=== PATIENT | female | born 1930 | race Caucasian/White ===

== ENCOUNTER 2016-11-22 11:31 | Inpatient (IN) | payer MEDICARE, OTHER ==
[~2016-11-22] VITALS: Ht 160 cm; Wt 50.9 kg
[2016-11-22] MEDS ORDERED: QUET25TA5 PO (11:59)
[2016-11-22] MEDS ORDERED: ACET325T9 PO (12:00)
[2016-11-22] MEDS ORDERED: ASPI81TA50 PO (12:01)
[2016-11-22 12:16] LABS: BASO % 0 % (0-3); EOS % 0 % (0-3); HEMOGLOBIN 13.7 g/dL (12.0-15.5); LYMPH # 0.7 x10^3/uL (1.0-4.8); LYMPH % 7 % (24-48); MEAN CORPUSCULAR HEMOGLOBIN 30 pg (25-35); MEAN CORPUSCULAR HGB CONC 34 g/dL (31-37); MEAN CORPUSCULAR VOLUME 89 fL (79-100); MONO # 0.6 x10^3/uL (0.0-1.1); MONO % 5 % (0-9); NEUT # 9.7 x10^3uL (1.8-7.7); NEUT % 88 % (31-73); PLATELET COUNT 242 x10^3/uL (140-400); RED BLOOD COUNT 4.49 x10^6/uL (3.50-5.40); RED CELL DISTRIBUTION WIDTH 12.7 % (11.5-14.5); WHITE BLOOD COUNT 11.1 x10^3/uL (4.0-11.0)
[2016-11-22 12:21] LABS: BACTERIA,URINE FEW /HPF (0-FEW); BILIRUBIN,URINE NEG (NEG); CLARITY,URINE HAZY; COLOR,URINE YELLOW; GLUCOSE,URINE NEG (NEG); NITRITE,URINE NEG (NEG); RBC,URINE 0 /HPF (0-2); SQUAMOUS EPITHELIAL CELL,UR MANY /LPF; UROBILINOGEN,URINE 2 mg/dL (0.2 mg/dL)
[2016-11-22 12:29] LABS: ALBUMIN 3.4 g/dL (3.4-5.0); CALCIUM 9.6 mg/dL (8.5-10.1); GFR 52.4; MAGNESIUM 2.3 mg/dL (1.8-2.4); POTASSIUM 3.6 mmol/L (3.5-5.1); TOTAL PROTEIN 6.9 g/dL (6.4-8.2)
--- NOTE | 2016-11-22 12:45 | PHYS DOC ---
Past History Past Medical History: Anxiety, CVA, Dementia, Fibromyalgia, GERD, Hypertension , UTI Past Surgical History: Other Smoking: Non-smoker Alcohol Use: None Drug Use: None Adult General Chief Complaint Chief Complaint: PSYCH EVALUATION HPI HPI Patient is a 86 year old F who presents with increasing agitation. She is a resident of [facility] in [place]. She does have a skin lesion over the back that is being cared for by a doctor at [facility]. No other concern or complaints at this time. Review of Systems Review of Systems Constitutional: Denies fever or chills [] Eyes: Denies change in visual acuity, redness, or eye pain [] HENT: Denies nasal congestion or sore throat [] Respiratory: Denies cough or shortness of breath [] Cardiovascular: No additional information not addressed in HPI [] GI: Denies abdominal pain, nausea, vomiting, bloody stools or diarrhea [] : Denies dysuria or hematuria [] Musculoskeletal: Denies back pain or joint pain [] Integument: Neg except HPI Neurologic: Denies headache, focal weakness or sensory changes [] Endocrine: Denies polyuria or polydipsia [] Family History Family History Non contributory Current Medications Current Medications Reviewed Allergies Allergies Coded Allergies Type Severity Reaction Last Updated Verified clindamycin Allergy Unknown 11/22/16 Yes ramipril Allergy Unknown 11/22/16 Yes tetanus and diphtheria toxoids Allergy Unknown 11/22/16 Yes Physical Exam Physical Exam Constitutional: Well developed, well nourished, no acute distress, non-toxic appearance. [] HENT: Normocephalic, atraumatic, bilateral external ears normal, oropharynx moist, no oral exudates, nose normal. [] Eyes: PERRLA, EOMI, conjunctiva normal, no discharge. [] Neck: Normal range of motion, no tenderness, supple, no stridor. [] Cardiovascular:Heart rate regular rhythm Lungs & Thorax: Bilateral breath sounds clear to auscultation [] Abdomen: Bowel sounds normal, soft, no tenderness, no masses, no pulsatile masses. [] Skin: Warm, dry, no erythema, no rash. [] Back: No tenderness, no CVA tenderness. Superficial abrasion like wound over the mid lower back. This wound is dressed Extremities: No tenderness, no cyanosis, no clubbing, ROM intact, no edema. [] Neurologic: no focal deficits noted. [] Psychologic: Affect normal, judgement normal, mood normal. [] Current Patient Data Vital Signs Vital Signs Date Time Temp Pulse Resp B/P (MAP) Pulse Ox O2 Delivery O2 Flow Rate FiO2 11/22/16 12:21 98.4 67 144/96 (112) 99 11/22/16 11:51 18 11/22/16 11:50 Room Air Lab Results Laboratory Tests Test 11/22/16 11:50 11/22/16 12:00 Urine Collection Type Unknown Urine Color Yellow Urine Clarity Hazy Urine pH 6.0 Urine Specific [place] 1.020 Urine Protein Neg (NEG-TRACE) Urine Glucose (UA) Neg mg/dL (NEG) Urine Ketones (Stick) Neg mg/dL (NEG) Urine Blood Neg (NEG) Urine Nitrite Neg (NEG) Urine Bilirubin Neg (NEG) Urine Urobilinogen Dipstick 2 mg/dL (0.2 mg/dL) Urine Leukocyte Esterase Neg (NEG) Urine RBC 0 /HPF (0-2) Urine WBC 1-4 /HPF (0-4) Urine Squamous Epithelial Cells Many /LPF Urine Bacteria Few /HPF (0-FEW) Urine Mucus Mod /LPF White Blood Count 11.1 x10^3/uL (4.0-11.0) H Red Blood Count 4.49 x10^6/uL (3.50-5.40) Hemoglobin 13.7 g/dL (12.0-15.5) Hematocrit 40.0 % (36.0-47.0) Mean Corpuscular Volume 89 fL (79-100) Mean Corpuscular Hemoglobin 30 pg (25-35) Mean Corpuscular Hemoglobin Concent 34 g/dL (31-37) Red Cell Distribution Width 12.7 % (11.5-14.5) Platelet Count 242 x10^3/uL (140-400) Neutrophils (%) (Auto) 88 % (31-73) H Lymphocytes (%) (Auto) 7 % (24-48) L Monocytes (%) (Auto) 5 % (0-9) Eosinophils (%) (Auto) 0 % (0-3) Basophils (%) (Auto) 0 % (0-3) Neutrophils # (Auto) 9.7 x10^3uL (1.8-7.7) H Lymphocytes # (Auto) 0.7 x10^3/uL (1.0-4.8) L Monocytes # (Auto) 0.6 x10^3/uL (0.0-1.1) Eosinophils # (Auto) 0.0 x10^3/uL (0.0-0.7) Basophils # (Auto) 0.0 x10^3/uL (0.0-0.2) Laboratory Tests Test 11/22/16 11:50 11/22/16 12:00 Urine Collection Type Unknown Urine Color Yellow Urine Clarity Hazy Urine pH 6.0 Urine Specific [place] 1.020 Urine Protein Neg (NEG-TRACE) Urine Glucose (UA) Neg mg/dL (NEG) Urine Ketones (Stick) Neg mg/dL (NEG) Urine Blood Neg (NEG) Urine Nitrite Neg (NEG) Urine Bilirubin Neg (NEG) Urine Urobilinogen Dipstick 2 mg/dL (0.2 mg/dL) Urine Leukocyte Esterase Neg (NEG) Urine RBC 0 /HPF (0-2) Urine WBC 1-4 /HPF (0-4) Urine Squamous Epithelial Cells Many /LPF Urine Bacteria Few /HPF (0-FEW) Urine Mucus Mod /LPF White Blood Count 11.1 x10^3/uL (4.0-11.0) Red Blood Count 4.49 x10^6/uL (3.50-5.40) Hemoglobin 13.7 g/dL (12.0-15.5) Hematocrit 40.0 % (36.0-47.0) Mean Corpuscular Volume 89 fL (79-100) Mean Corpuscular Hemoglobin 30 pg (25-35) Mean Corpuscular Hemoglobin Concent 34 g/dL (31-37) Red Cell Distribution Width 12.7 % (11.5-14.5) Platelet Count 242 x10^3/uL (140-400) Neutrophils (%) (Auto) 88 % (31-73) Lymphocytes (%) (Auto) 7 % (24-48) Monocytes (%) (Auto) 5 % (0-9) Eosinophils (%) (Auto) 0 % (0-3) Basophils (%) (Auto) 0 % (0-3) Neutrophils # (Auto) 9.7 x10^3uL (1.8-7.7) Lymphocytes # (Auto) 0.7 x10^3/uL (1.0-4.8) Monocytes # (Auto) 0.6 x10^3/uL (0.0-1.1) Eosinophils # (Auto) 0.0 x10^3/uL (0.0-0.7) Basophils # (Auto) 0.0 x10^3/uL (0.0-0.2) Sodium Level 140 mmol/L (136-145) Potassium Level 3.6 mmol/L (3.5-5.1) Chloride Level 100 mmol/L (98-107) Carbon Dioxide Level 32 mmol/L (21-32) Anion Gap 8 (6-14) Blood Urea Nitrogen 22 mg/dL (7-20) Creatinine 1.0 mg/dL (0.6-1.0) Estimated GFR (Cockcroft-Gault) 52.4 BUN/Creatinine Ratio 22 (6-20) Glucose Level 163 mg/dL (70-99) Calcium Level 9.6 mg/dL (8.5-10.1) Magnesium Level 2.3 mg/dL (1.8-2.4) Total Bilirubin 1.0 mg/dL (0.2-1.0) Aspartate Amino Transf (AST/SGOT) 21 U/L (15-37) Alanine Aminotransferase (ALT/SGPT) 26 U/L (14-59) Alkaline Phosphatase 91 U/L (46-116) Total Protein 6.9 g/dL (6.4-8.2) Albumin 3.4 g/dL (3.4-5.0) Albumin/Globulin Ratio 1.0 (1.0-1.7) EKG EKG Interpreted by emergency department physician Rhythm: NSR Rate: 76 Ectopy: none Clinical Impression: None Course & Med Decision Making Course & Med Decision Making Pertinent Labs and Imaging studies reviewed. (See chart for details) Dragon Disclaimer Dragon Disclaimer This chart was dictated in whole or in part using Voice Recognition software in a busy, high-work load, and often noisy Emergency Department environment. It may contain unintended and wholly unrecognized errors or omissions. Departure Departure: Impression: Primary Impression: Medical clearance for psychiatric admission Disposition: 65 XFER TO PSYCH HOSP/UNIT Condition: STABLE Referrals: ELIZABETH FRANKLIN DO (PCP) LETY HERNANDES MD 18, 2017 12:45
--- NOTE | 2016-11-22 13:23 | EKG ---
[address] [address] Test Date: 2016-11-22 Test Time: 11:50:45 Pat Name: BRY LUCIO Department: Room: [address] [place] [address] Gender: F Science Teacher: SAWYER : [id number] Requested By: LETY HERNANDES Order Number: [id number] Reading MD: John Bernal Measurements Intervals [place] Rate: 76 P: 59 OK: 176 QRS: -52 QRSD: 80 T: 65 QT: 380 QTc: 427 Interpretive Statements SINUS RHYTHM ABNORMAL LEFT AXIS DEVIATION LEFT ANTERIOR FASCICULAR BLOCK Electronically Signed On 12-04-2016 14:28:30 CDT by John Bernal
[2016-11-22 13:36] VITALS: BP 135/61
[2016-11-22] MEDS ORDERED: DILT120C80 PO (13:56)
[2016-11-22] MEDS ORDERED: CHOL10003 PO (13:56)
[2016-11-22] MEDS ORDERED: FURO-68 PO (13:56)
[2016-11-22] MEDS ORDERED: LOSA50TA6 PO (13:56)
[2016-11-22] MEDS ORDERED: LACT1CAP29 PO (13:56)
[2016-11-22] MEDS ORDERED: CRESTOR10 MG PO (13:56)
[2016-11-22] MEDS ORDERED: LORA0.5T PO (13:56)
[2016-11-22] MEDS ORDERED: COLL30OI TP (13:56)
[2016-11-22] MEDS ORDERED: DONE5TAB7 PO (13:56)
[2016-11-22] MEDS ORDERED: METHYL SALICYLATE/MENTHOL TOPICAL OINTMENT 29GM TUBE. TP PRN (14:15)
[2016-11-22] MEDS ORDERED: ACETAMINOPHEN 325 MG TABLET PO PRN (14:15)
[2016-11-22] MEDS ORDERED: MAGNESIUM HYDROXIDE 2,400 MG/30 ML ORAL.SUSP. PO PRN (14:15)
[2016-11-22] MEDS ORDERED: MAG HYDROX/AL HYDROX/SIMETH 30 ML ORAL.SUSP PO PRN (14:15)
[2016-11-22 15:40] VITALS: BP 108/69
--- NOTE | 2016-11-22 20:27 | PDOC ---
Exam Andrez Demential Exam: Andrez Note: Please also refer to the separate dictated note~for this date of service dictated separately.~Patient seen individually. Discussed the patient with Nursing staff reviewed the chart.~Reviewed interim history and current functioning. Reviewed vital signs,~Labs/ Radiology~and current medications noted below. Continue current treatment with the changes noted in the dictated addendum note Assessment: Vital Signs: Vital Signs Date Time Temp Pulse Resp B/P (MAP) Pulse Ox O2 Delivery O2 Flow Rate FiO2 11/22/16 15:40 97.7 73 20 108/69 (82) 96 11/22/16 11:50 Room Air Labs: Laboratory Tests Test 11/22/16 11:50 11/22/16 12:00 Urine Collection Type Unknown Urine Color Yellow Urine Clarity Hazy Urine pH 6.0 Urine Specific [place] 1.020 Urine Protein Neg (NEG-TRACE) Urine Glucose (UA) Neg mg/dL (NEG) Urine Ketones (Stick) Neg mg/dL (NEG) Urine Blood Neg (NEG) Urine Nitrite Neg (NEG) Urine Bilirubin Neg (NEG) Urine Urobilinogen Dipstick 2 mg/dL (0.2 mg/dL) Urine Leukocyte Esterase Neg (NEG) Urine RBC 0 /HPF (0-2) Urine WBC 1-4 /HPF (0-4) Urine Squamous Epithelial Cells Many /LPF Urine Bacteria Few /HPF (0-FEW) Urine Mucus Mod /LPF White Blood Count 11.1 x10^3/uL (4.0-11.0) H Red Blood Count 4.49 x10^6/uL (3.50-5.40) Hemoglobin 13.7 g/dL (12.0-15.5) Hematocrit 40.0 % (36.0-47.0) Mean Corpuscular Volume 89 fL (79-100) Mean Corpuscular Hemoglobin 30 pg (25-35) Mean Corpuscular Hemoglobin Concent 34 g/dL (31-37) Red Cell Distribution Width 12.7 % (11.5-14.5) Platelet Count 242 x10^3/uL (140-400) Neutrophils (%) (Auto) 88 % (31-73) H Lymphocytes (%) (Auto) 7 % (24-48) L Monocytes (%) (Auto) 5 % (0-9) Eosinophils (%) (Auto) 0 % (0-3) Basophils (%) (Auto) 0 % (0-3) Neutrophils # (Auto) 9.7 x10^3uL (1.8-7.7) H Lymphocytes # (Auto) 0.7 x10^3/uL (1.0-4.8) L Monocytes # (Auto) 0.6 x10^3/uL (0.0-1.1) Eosinophils # (Auto) 0.0 x10^3/uL (0.0-0.7) Basophils # (Auto) 0.0 x10^3/uL (0.0-0.2) Sodium Level 140 mmol/L (136-145) Potassium Level 3.6 mmol/L (3.5-5.1) Chloride Level 100 mmol/L (98-107) Carbon Dioxide Level 32 mmol/L (21-32) Anion Gap 8 (6-14) Blood Urea Nitrogen 22 mg/dL (7-20) H Creatinine 1.0 mg/dL (0.6-1.0) Estimated GFR (Cockcroft-Gault) 52.4 BUN/Creatinine Ratio 22 (6-20) H Glucose Level 163 mg/dL (70-99) H Calcium Level 9.6 mg/dL (8.5-10.1) Magnesium Level 2.3 mg/dL (1.8-2.4) Total Bilirubin 1.0 mg/dL (0.2-1.0) Aspartate Amino Transferase (AST) 21 U/L (15-37) Alanine Aminotransferase (ALT) 26 U/L (14-59) Alkaline Phosphatase 91 U/L (46-116) Total Protein 6.9 g/dL (6.4-8.2) Albumin 3.4 g/dL (3.4-5.0) Albumin/Globulin Ratio 1.0 (1.0-1.7) Current Medications: Meds: Current Medications Donepezil HCl (Aricept) 5 mg HS PO ; Start 11/22/16 at 21:00 Lorazepam (Ativan) 0.25 mg DAILY PO ; Start 11/23/16 at 09:00 Quetiapine Fumarate (SEROquel) 25 mg NOON PO ; Start 11/23/16 at 12:00 Acetaminophen (Tylenol) 650 mg PRN Q6HRS PRN PO PAIN / TEMP; Start 11/22/16 at 14:15 Multi-Ingredient Ointment (Analgesic [place]) 1 vicki PRN QID PRN TP MUSCLE PAIN; Start 11/22/16 at 14:15 Al Hydroxide/Mg Hydroxide (Mylanta Plus Xs) 15 ml PRN AFTMEALHC PRN PO DYSPEPSIA; Start 11/22/16 at 14:15 Magnesium Hydroxide (Milk Of Magnesia) 2,400 mg PRN QHS PRN PO CONSTIPATION; Start 11/22/16 at 14:15 Active Scripts Active Reported Vitamin D3 (Cholecalciferol (Vitamin D3)) 1,000 Unit Tablet 2,000 Unit PO DAILY Santyl (Collagenase Clostridium Hist.) 30 Gm Oint...g. 30 Gm TP DAILY Crestor (Rosuvastatin Calcium) 10 Mg Tablet 10 Mg PO DAILY Probiotic (Lactobacillus Combo No.10) 1 Each Capsule 1 Each PO DAILY Losartan Potassium 50 Mg Tablet 50 Mg PO DAILY Lorazepam 0.5 Mg Tablet 0.25 Mg PO DAILY Lasix (Furosemide) 40 Mg Tablet 40 Mg PO DAILY Donepezil Hcl 5 Mg Tablet 5 Mg PO HS Diltiazem 24HR Cd (Diltiazem Hcl) 120 Mg Cap.er.24h 240 Mg PO Aspir-Low (Aspirin) 81 Mg Tablet.dr 81 Mg PO Tylenol (Acetaminophen) 325 Mg Tablet 650 Mg PO Seroquel (Quetiapine Fumarate) 25 Mg Tablet 25 Tab PO SAVAGE DUMONT MD Nov 22, 2016 20:27
[2016-11-22] MEDS ORDERED: DONEPEZIL HCL 5 MG TABLET. PO SCH (21:00)
[2016-11-23 00:09] LABS: T3 TOTAL 95 ng/dL (71-180); THYROXINE 9.5 ug/dL (4.5-12.0)
[2016-11-23 05:24] VITALS: BP 127/60
[2016-11-23 06:09] LABS: HEMOGLOBIN A1C 5.2 % (4.8-5.6)
[2016-11-23] MEDS ORDERED: ACETAMINOPHEN 325 MG TABLET PO SCH (07:15)
[2016-11-23] MEDS: LORazepam 0.5 MG TABLET PO SCH (09:13)
[2016-11-23] MEDS: LACTOBACILLUS ACIDOPH & BULGAR 1 TABLET. PO SCH (09:13)
[2016-11-23] MEDS: CHOLECALCIFEROL (VITAMIN D3) 1,000 UNIT TABLET PO SCH (09:13)
[2016-11-23] MEDS: LOSARTAN 50 MG TABLET. PO SCH (09:14)
[2016-11-23] MEDS: FUROSEMIDE 40 MG TABLET PO SCH (09:14)
[2016-11-23] MEDS: ASPIRIN ENTERIC COATED 81 MG TABLET.DR. PO SCH (09:14)
[2016-11-23 12:32] LABS: THYROID STIM HORMONE (TSH) 0.671 uIU/mL (0.358-3.740)
[2016-11-23] MEDS: QUEtiapine 25 MG TABLET. PO SCH (13:53)
--- NOTE | 2016-11-23 15:39 | PDOC2 ---
CONSULT Date of Admission DATE: 11/22/16 TIME: 15:28 Reason for Consult: Medical management as the patient is known to have HTN,CVA and recurrent UTI as well as HLD Referring Physician: Dr Rocha Chief Complaint increased agitation aggression, combative with staff , refusing medication paranoid thinking the food was poisoned Source: Caregiver Problem List Problems Medical Problems: (1) Medical clearance for psychiatric admission Status: Acute History of Present Illness Started recently at the SNF. She is here for inpatient stabilization Cardiovascular: HTN, hyperipidemia CENTRAL NERVOUS SYSTEM: CVA Heme/Onc: Other (vitamin D Deficiency) Hepatobiliary: No pertinent hx Psych: Anxiety, Bipolar, Panic Musculoskeletal: Other (falls) Rheumatologic: Fibromyalgia Renal/: No pertinent hx Endocrine: No pertinent hx Dermatology: No pertinent hx Past Surgical History: No pertinent history Smoke: No ALCOHOL: none Drugs: None Lives: [facility] Current Medications Current Medications Donepezil HCl (Aricept) 5 mg HS PO Last administered on 11/22/16 20:39; Start 11/22/16 at 21:00 Lorazepam (Ativan) 0.25 mg DAILY PO Last administered on 11/23/16 09:13; Start 11/23/16 at 09:00 Quetiapine Fumarate (SEROquel) 25 mg NOON PO Last administered on 11/23/16 13: 53; Start 11/23/16 at 12:00 Acetaminophen (Tylenol) 650 mg PRN Q6HRS PRN PO PAIN / TEMP; Start 11/22/16 at 14:15; Stop 11/23/16 at 12:34; Status DC Multi-Ingredient Ointment (Analgesic [place]) 1 vicki PRN QID PRN TP MUSCLE PAIN; Start 11/22/16 at 14:15 Al Hydroxide/Mg Hydroxide (Mylanta Plus Xs) 15 ml PRN AFTMEALHC PRN PO DYSPEPSIA; Start 11/22/16 at 14:15 Magnesium Hydroxide (Milk Of Magnesia) 2,400 mg PRN QHS PRN PO CONSTIPATION; Start 11/22/16 at 14:15 Acetaminophen (Tylenol) 650 mg PRN Q4HRS PO ; Start 11/23/16 at 07:15 Aspirin (Aspirin Enteric Coated) 81 mg DAILY PO Last administered on 11/23/16 09:14; Start 7/19/17 at 09:00 Vitamin D (Vitamin D3) 2,000 unit DAILY PO Last administered on 11/23/16 09:13 ; Start 11/23/16 at 09:00 Diltiazem HCl (Cardizem 24hr Cd) 240 mg DAILY PO Last administered on 09:14; Start 11/23/16 at 09:00 Furosemide (Lasix) 40 mg DAILY PO Last administered on 11/23/16 09:14; Start 11/23/16 at 09:00 Losartan Potassium (Cozaar) 50 mg DAILY PO Last administered on 11/23/16 09:14 ; Start 11/23/16 at 09:00 Lactobacillus Acidophilus (Bacid, Amparo-Bid) 1 tab DAILY PO Last administered on 11/23/16 09:13; Start 11/23/16 at 09:00 Atorvastatin Calcium (Lipitor) 40 mg QHS PO ; Start 11/23/16 at 21:00 Active Scripts Active Reported Vitamin D3 (Cholecalciferol (Vitamin D3)) 1,000 Unit Tablet 2,000 Unit PO DAILY Santyl (Collagenase Clostridium Hist.) 30 Gm Oint...g. 30 Gm TP DAILY Crestor (Rosuvastatin Calcium) 10 Mg Tablet 10 Mg PO DAILY Probiotic (Lactobacillus Combo No.10) 1 Each Capsule 1 Each PO DAILY Losartan Potassium 50 Mg Tablet 50 Mg PO DAILY Lorazepam 0.5 Mg Tablet 0.25 Mg PO DAILY Lasix (Furosemide) 40 Mg Tablet 40 Mg PO DAILY Donepezil Hcl 5 Mg Tablet 5 Mg PO HS Diltiazem 24HR Cd (Diltiazem Hcl) 120 Mg Cap.er.24h 240 Mg PO Aspir-Low (Aspirin) 81 Mg Tablet.dr 81 Mg PO Tylenol (Acetaminophen) 325 Mg Tablet 650 Mg PO Seroquel (Quetiapine Fumarate) 25 Mg Tablet 25 Tab PO NOON Allergies: Coded Allergies: clindamycin (Verified Allergy, Intermediate, 11/23/16) ramipril (Verified Allergy, Intermediate, 11/23/16) tetanus and diphtheria toxoids (Verified Allergy, Intermediate, 11/23/16) General: Alert, Oriented X3, Cooperative, No acute distress HEENT: Atraumatic, PERRLA, EOMI Lungs: Clear to auscultation, Normal air movement Heart: Regular rate, Normal S1, Normal S2, No murmurs, Rubs Abdomen: Normal bowel sounds, Soft, No tenderness Extremities: No clubbing, No cyanosis, No edema Skin: No rashes, No breakdown Neuro: Normal gait, Normal speech, Strength at 5/5 X4 ext, Normal tone, Sensation intact 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) VITALS Vital Signs Date Time Temp Pulse Resp B/P (MAP) Pulse Ox O2 Delivery O2 Flow Rate FiO2 11/23/16 09:14 63 127/60 11/23/16 05:24 98.3 18 95 11/22/16 11:50 Room Air Labs Laboratory Tests Test 11/22/16 11:50 11/22/16 12:00 Urine Collection Type Unknown Urine Color Yellow Urine Clarity Hazy Urine pH 6.0 Urine Specific [place] 1.020 Urine Protein Neg (NEG-TRACE) Urine Glucose (UA) Neg mg/dL (NEG) Urine Ketones (Stick) Neg mg/dL (NEG) Urine Blood Neg (NEG) Urine Nitrite Neg (NEG) Urine Bilirubin Neg (NEG) Urine Urobilinogen Dipstick 2 mg/dL (0.2 mg/dL) Urine Leukocyte Esterase Neg (NEG) Urine RBC 0 /HPF (0-2) Urine WBC 1-4 /HPF (0-4) Urine Squamous Epithelial Cells Many /LPF Urine Bacteria Few /HPF (0-FEW) Urine Mucus Mod /LPF White Blood Count 11.1 x10^3/uL (4.0-11.0) Red Blood Count 4.49 x10^6/uL (3.50-5.40) Hemoglobin 13.7 g/dL (12.0-15.5) Hematocrit 40.0 % (36.0-47.0) Mean Corpuscular Volume 89 fL (79-100) Mean Corpuscular Hemoglobin 30 pg (25-35) Mean Corpuscular Hemoglobin Concent 34 g/dL (31-37) Red Cell Distribution Width 12.7 % (11.5-14.5) Platelet Count 242 x10^3/uL (140-400) Neutrophils (%) (Auto) 88 % (31-73) Lymphocytes (%) (Auto) 7 % (24-48) Monocytes (%) (Auto) 5 % (0-9) Eosinophils (%) (Auto) 0 % (0-3) Basophils (%) (Auto) 0 % (0-3) Neutrophils # (Auto) 9.7 x10^3uL (1.8-7.7) Lymphocytes # (Auto) 0.7 x10^3/uL (1.0-4.8) Monocytes # (Auto) 0.6 x10^3/uL (0.0-1.1) Eosinophils # (Auto) 0.0 x10^3/uL (0.0-0.7) Basophils # (Auto) 0.0 x10^3/uL (0.0-0.2) Sodium Level 140 mmol/L (136-145) Potassium Level 3.6 mmol/L (3.5-5.1) Chloride Level 100 mmol/L (98-107) Carbon Dioxide Level 32 mmol/L (21-32) Anion Gap 8 (6-14) Blood Urea Nitrogen 22 mg/dL (7-20) Creatinine 1.0 mg/dL (0.6-1.0) Estimated GFR (Cockcroft-Gault) 52.4 BUN/Creatinine Ratio 22 (6-20) Glucose Level 163 mg/dL (70-99) Hemoglobin A1c 5.2 % (4.8-5.6) Calcium Level 9.6 mg/dL (8.5-10.1) Magnesium Level 2.3 mg/dL (1.8-2.4) Iron Level 91 ug/dL (50-170) Total Iron Binding Capacity 308 ug/dL (250-450) Iron Saturation 30 % (15-34) Total Bilirubin 1.0 mg/dL (0.2-1.0) Aspartate Amino Transf (AST/SGOT) 21 U/L (15-37) Alanine Aminotransferase (ALT/SGPT) 26 U/L (14-59) Alkaline Phosphatase 91 U/L (46-116) Total Protein 6.9 g/dL (6.4-8.2) Albumin 3.4 g/dL (3.4-5.0) Albumin/Globulin Ratio 1.0 (1.0-1.7) Triglycerides Level 106 mg/dL (0-150) Cholesterol Level 177 mg/dL (0-200) LDL Cholesterol, Calculated 71 mg/dL (0-100) VLDL Cholesterol, Calculated 21 mg/dL (0-40) Non-HDL Cholesterol Calculated 92 mg/dL (0-129) HDL Cholesterol 85 mg/dL (40-60) Cholesterol/HDL Ratio 2.0 Vitamin B12 Level 329 pg/mL (247-911) 25-Hydroxy Vitamin D Total 13.7 ng/mL (30.0-100.0) Thyroid Stimulating Hormone (TSH) 0.671 uIU/mL (0.358-3.740) Thyroxine (T4) 9.5 ug/dL (4.5-12.0) Total Triiodothyronine 95 ng/dL (71-180) RPR Titer Additional Testing Non reactive (Non Reactive) Assessment/Plan All her vitals are within normal range Her labs are reviewed and revealed vitamin D Deficiency which we will replenish Problems: DENNY PERZE MD Nov 23, 2016 15:39
[2016-11-23] MEDS: MIRTAZAPINE 7.5 MG TABLET. PO SCH (19:52)
[2016-11-23] MEDS: DONEPEZIL HCL 10 MG TABLET PO SCH ×2 (19:52→20:24)
[2016-11-23] MEDS: ATORVASTATIN CALCIUM 20 MG TABLET PO SCH ×2 (19:52→20:24)
--- NOTE | 2016-11-23 20:14 | PDOC ---
Exam Andrez Demential Exam: Andrez Note: Please also refer to the separate dictated note~for this date of service dictated separately.~Patient seen individually. Discussed the patient with Nursing staff reviewed the chart.~Reviewed interim history and current functioning. Reviewed vital signs,~Labs/ Radiology~and current medications noted below. Continue current treatment with the changes noted in the dictated addendum note Patient seen individually the evening of 11/23. Per nursing report patient as being quite withdrawn during the day somewhat depressed with depressed mood little energy spending much time in her room until lunchtime. She refused her morning medications. She knew she was at a hospital in [place] but unsure what she was here for. She knows the year is 2016 but not the month. Earlier in the evening she was following a staff member around the unit making certain bizarre noises and then trying to pinch or pulling at the staff member. Insight is limited when this was addressed with her individually. Review of systems: No eye ENT CV GI pulmonary system symptoms on review. Reliability poor. Mental status examination: Patient is oriented to herself and situation. Speech has some latency is coherent. Abstraction fair computation impaired language function intact mood is depressed affect is mood congruent. She slept somewhat poorly last night. Memory is impaired. No clear psychotic symptoms suicidal or homicidal ideation. 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 Start Wellbutrin XL 150 mg a day as an antidepressant to help additionally improve her energy motivation activity during the day. Continue Seroquel 12.5 mg daily at noon Ativan 0.25 mg daily and start Remeron 7.5 mg at bedtime both for her anxiety symptoms and to help with insomnia. Patient reassessed later again. Very paranoid about food. Only eating wrapped food she can undo wrapping of herself.. Will change Seroquel to Risperdal 0.25mg /d and start Zyprexa prn psychosis. Assessment: Vital Signs: Vital Signs Date Time Temp Pulse Resp B/P (MAP) Pulse Ox O2 Delivery O2 Flow Rate FiO2 11/23/16 09:14 63 127/60 11/23/16 05:24 98.3 18 95 11/22/16 11:50 Room Air I&O Intake and Output 11/23/16 07:00 Intake Total 360 ml Balance 360 ml Intake Oral 360 ml # Voids 2 Current Medications: Meds: Current Medications Donepezil HCl (Aricept) 5 mg HS PO Last administered on 11/22/16 20:39; Start 11/22/16 at 21:00; Stop 11/23/16 at 16:37; Status DC Lorazepam (Ativan) 0.25 mg DAILY PO Last administered on 11/23/16 09:13; Start 11/23/16 at 09:00 Quetiapine Fumarate (SEROquel) 25 mg NOON PO Last administered on 11/23/16 13: 53; Start 11/23/16 at 12:00 Acetaminophen (Tylenol) 650 mg PRN Q6HRS PRN PO PAIN / TEMP; Start 11/22/16 at 14:15; Stop 11/23/16 at 12:34; Status DC Multi-Ingredient Ointment (Analgesic [place]) 1 vicki PRN QID PRN TP MUSCLE PAIN; Start 11/22/16 at 14:15 Al Hydroxide/Mg Hydroxide (Mylanta Plus Xs) 15 ml PRN AFTMEALHC PRN PO DYSPEPSIA; Start 11/22/16 at 14:15 Magnesium Hydroxide (Milk Of Magnesia) 2,400 mg PRN QHS PRN PO CONSTIPATION; Start 11/22/16 at 14:15 Acetaminophen (Tylenol) 650 mg PRN Q4HRS PO ; Start 11/23/16 at 07:15 Aspirin (Aspirin Enteric Coated) 81 mg DAILY PO Last administered on 11/23/16 09:14; Start 11/23/16 at 09:00 Vitamin D (Vitamin D3) 2,000 unit DAILY PO Last administered on 11/23/16 09:13 ; Start 11/23/16 at 09:00 Diltiazem HCl (Cardizem 24hr Cd) 240 mg DAILY PO Last administered on 09:14; Start 11/23/16 at 09:00 Furosemide (Lasix) 40 mg DAILY PO Last administered on 11/23/16 09:14; Start 11/23/16 at 09:00 Losartan Potassium (Cozaar) 50 mg DAILY PO Last administered on 11/23/16 09:14 ; Start 11/23/16 at 09:00 Lactobacillus Acidophilus (Bacid, Amparo-Bid) 1 tab DAILY PO Last administered on 11/23/16 09:13; Start 11/23/16 at 09:00 Atorvastatin Calcium (Lipitor) 40 mg QHS PO Last administered on 11/23/16 19: 52; Start 11/23/16 at 21:00 Vitamin D (Vitamin D3) 50,000 unit WEEKLY PO ; Start 11/24/16 at 09:00 Donepezil HCl (Aricept) 10 mg QHS PO Last administered on 11/23/16 19:52; Start 11/23/16 at 21:00 Bupropion HCl (Wellbutrin Xl) 150 mg DAILY PO ; Start 11/24/16 at 09:00 Mirtazapine (Remeron) 7.5 mg QHS PO Last administered on 11/23/16 19:52; Start 11/23/16 at 21:00 Olanzapine (ZyPREXA ZYDIS) 2.5 mg PRN Q2HR PRN PO PSYCHOSIS; Start 11/23/16 at 18:30 Active Scripts Active Reported Vitamin D3 (Cholecalciferol (Vitamin D3)) 1,000 Unit Tablet 2,000 Unit PO DAILY Santyl (Collagenase Clostridium Hist.) 30 Gm Oint...g. 30 Gm TP DAILY Crestor (Rosuvastatin Calcium) 10 Mg Tablet 10 Mg PO DAILY Probiotic (Lactobacillus Combo No.10) 1 Each Capsule 1 Each PO DAILY Losartan Potassium 50 Mg Tablet 50 Mg PO DAILY Lorazepam 0.5 Mg Tablet 0.25 Mg PO DAILY Lasix (Furosemide) 40 Mg Tablet 40 Mg PO DAILY Donepezil Hcl 5 Mg Tablet 5 Mg PO HS Diltiazem 24HR Cd (Diltiazem Hcl) 120 Mg Cap.er.24h 240 Mg PO Aspir-Low (Aspirin) 81 Mg Tablet.dr 81 Mg PO Tylenol (Acetaminophen) 325 Mg Tablet 650 Mg PO Seroquel (Quetiapine Fumarate) 25 Mg Tablet 25 Tab PO SAVAGE DUMONT MD Nov 23, 2016 20:14
[2016-11-24 05:25] VITALS: BP 130/65
[2016-11-24] MEDS: CHOLECALCIFEROL (VITAMIN D3) 1,000 UNIT TABLET PO SCH (09:00)
[2016-11-24] MEDS: CHOLECALCIFEROL (VITAMIN D3) 50,000 UNIT CAPSULE PO SCH (09:00)
[2016-11-24] MEDS: FUROSEMIDE 40 MG TABLET PO SCH (09:00)
[2016-11-24] MEDS: LACTOBACILLUS ACIDOPH & BULGAR 1 TABLET. PO SCH (09:00)
[2016-11-24] MEDS: ASPIRIN ENTERIC COATED 81 MG TABLET.DR. PO SCH (09:00)
[2016-11-24] MEDS: buPROPion XL 150 MG TAB.ER.24H PO SCH (09:00)
[2016-11-24] MEDS: LORazepam 0.5 MG TABLET PO SCH (09:00)
[2016-11-24] MEDS: LOSARTAN 50 MG TABLET. PO SCH (09:01)
[2016-11-24] MEDS: QUEtiapine 25 MG TABLET. PO SCH (11:34)
[2016-11-24] MEDS: risperiDONE ORAL 1 MG/ML 30ml BOTTLE. SL SCH ×2 (11:35→11:37)
[2016-11-24 16:01] VITALS: BP 121/73
[2016-11-24] MEDS: DONEPEZIL HCL 10 MG TABLET PO SCH (19:55)
[2016-11-24] MEDS: ATORVASTATIN CALCIUM 20 MG TABLET PO SCH (19:55)
[2016-11-24] MEDS: MIRTAZAPINE 7.5 MG TABLET. PO SCH (19:55)
--- NOTE | 2016-11-24 20:03 | PDOC ---
Exam Andrez Demential Exam: Andrez Note: Please also refer to the separate dictated note~for this date of service dictated separately.~Patient seen individually. Discussed the patient with Nursing staff reviewed the chart.~Reviewed interim history and current functioning. Reviewed vital signs,~Labs/ Radiology~and current medications noted below. Continue current treatment with the changes noted in the dictated addendum note Assessment: Vital Signs: Vital Signs Date Time Temp Pulse Resp B/P (MAP) Pulse Ox O2 Delivery O2 Flow Rate FiO2 11/24/16 16:01 98.8 70 20 121/73 (89) 96 11/22/16 11:50 Room Air I&O Intake and Output 11/24/16 07:00 Intake Total 120 ml Balance 120 ml Intake Oral 120 ml # Bowel Movements 1 Current Medications: Meds: Current Medications Donepezil HCl (Aricept) 5 mg HS PO Last administered on 11/22/16 20:39; Start 11/22/16 at 21:00; Stop 11/23/16 at 16:37; Status DC Lorazepam (Ativan) 0.25 mg DAILY PO Last administered on 11/24/16 09:00; Start 11/23/16 at 09:00 Quetiapine Fumarate (SEROquel) 25 mg NOON PO Last administered on 11/24/16 11: 34; Start 11/23/16 at 12:00 Acetaminophen (Tylenol) 650 mg PRN Q6HRS PRN PO PAIN / TEMP; Start 11/22/16 at 14:15; Stop 11/23/16 at 12:34; Status DC Multi-Ingredient Ointment (Analgesic [place]) 1 vicki PRN QID PRN TP MUSCLE PAIN; Start 11/22/16 at 14:15 Al Hydroxide/Mg Hydroxide (Mylanta Plus Xs) 15 ml PRN AFTMEALHC PRN PO DYSPEPSIA; Start 11/22/16 at 14:15 Magnesium Hydroxide (Milk Of Magnesia) 2,400 mg PRN QHS PRN PO CONSTIPATION; Start 11/22/16 at 14:15 Acetaminophen (Tylenol) 650 mg PRN Q4HRS PO ; Start 11/23/16 at 07:15 Aspirin (Aspirin Enteric Coated) 81 mg DAILY PO Last administered on 11/23/16 09:14; Start 11/23/16 at 09:00 Vitamin D (Vitamin D3) 2,000 unit DAILY PO Last administered on 11/23/16 09:13 ; Start 11/23/16 at 09:00 Diltiazem HCl (Cardizem 24hr Cd) 240 mg DAILY PO Last administered on 09:14; Start 11/23/16 at 09:00 Furosemide (Lasix) 40 mg DAILY PO Last administered on 11/23/16 09:14; Start 11/23/16 at 09:00 Losartan Potassium (Cozaar) 50 mg DAILY PO Last administered on 11/24/16 09:01 ; Start 11/23/16 at 09:00 Lactobacillus Acidophilus (Bacid, Amparo-Bid) 1 tab DAILY PO Last administered on 11/23/16 09:13; Start 11/23/16 at 09:00 Atorvastatin Calcium (Lipitor) 40 mg QHS PO Last administered on 11/24/16 19: 55; Start 11/23/16 at 21:00 Vitamin D (Vitamin D3) 50,000 unit WEEKLY PO ; Start 11/24/16 at 09:00 Donepezil HCl (Aricept) 10 mg QHS PO Last administered on 11/24/16 19:55; Start 11/23/16 at 21:00 Bupropion HCl (Wellbutrin Xl) 150 mg DAILY PO Last administered on 11/24/16 09 :00; Start 11/24/16 at 09:00 Mirtazapine (Remeron) 7.5 mg QHS PO Last administered on 11/24/16 19:55; Start 11/23/16 at 21:00 Olanzapine (ZyPREXA ZYDIS) 2.5 mg PRN Q2HR PRN PO PSYCHOSIS; Start 11/23/16 at 18:30 Risperidone (RisperDAL) 0.125 mg QHS SL Last administered on 11/24/16 11:35; Start 11/24/16 at 11:00 Active Scripts Active Reported Vitamin D3 (Cholecalciferol (Vitamin D3)) 1,000 Unit Tablet 2,000 Unit PO DAILY Santyl (Collagenase Clostridium Hist.) 30 Gm Oint...g. 30 Gm TP DAILY Crestor (Rosuvastatin Calcium) 10 Mg Tablet 10 Mg PO DAILY Probiotic (Lactobacillus Combo No.10) 1 Each Capsule 1 Each PO DAILY Losartan Potassium 50 Mg Tablet 50 Mg PO DAILY Lorazepam 0.5 Mg Tablet 0.25 Mg PO DAILY Lasix (Furosemide) 40 Mg Tablet 40 Mg PO DAILY Donepezil Hcl 5 Mg Tablet 5 Mg PO HS Diltiazem 24HR Cd (Diltiazem Hcl) 120 Mg Cap.er.24h 240 Mg PO Aspir-Low (Aspirin) 81 Mg Tablet.dr 81 Mg PO Tylenol (Acetaminophen) 325 Mg Tablet 650 Mg PO Seroquel (Quetiapine Fumarate) 25 Mg Tablet 25 Tab PO SAVAGE DUMONT MD Nov 24, 2016 20:03
--- NOTE | 2016-11-25 02:04 | ACF ---
Admit Criteria Forms Admit Criteria Forms Admit Criteria Forms PSYCHIATRIC DISORDERS Clinical Indications for Inpatient Care (Place 'X' for any and all applicable criteria): Ongoing inpatient care may be needed for 1 or more of the following(1)(2)(3)(4)( 6)(7)(8): [ ]I. Danger to self or others not manageable at lower level of care. [ ]II. Grave disability (eg, inability to perform self care necessary at lower level of care) [ ]III. Agitation or inappropriate behavior interfering with care for primary condition (eg, attempting to discontinue lines or drains prematurely, unable to cooperate with respiratory care) [X]IV. Severe disability or disorder indicated by ALL of the following: [X]a) Severe behavioral health disorder-related symptoms or condition indicated by 1 or more of the following: [ ]i) Severe problem with cognition, memory, judgment, or impulse control [X]ii) Severe clinical manifestations (eg, hallucinations, delusions, other acute psychotic symptoms, mylene, extreme agitation or anxiety) [X]b) Patient management at lower level of care is not feasible until acute intervention or modification is initiated. Extended stay beyond goal length of stay for the primary condition may be needed untilALLof the following are present(1)(2)(3)(4)722)(23): [ ]a) Danger to self or others is absent or manageable at lower level of care [ ]b) Behavior crisis management, including physical or chemical restraints, is required and is not available at a lower level of care. [ ]c) Behavioral symptoms (e.g., agitation, somnolence, inappropriate behavior) are present, and are not manageable at a lower level of care. [ ]d) Patient cannot understand follow-up treatment and crisis plan. [ ]e) Provider and supports are sufficiently available at lower level of care. [ ]f) Patient can participate (e.g., verify absence of plan for harm) and is in needed of monitoring. The original [facility] [place] [employer] content created by [facility] [employer] has been revised. The portions of the content which have been revised are identified through the use of italic text, and [facility] [facility] has neither reviewed nor approved the modified material. All other unmodified content is copyright [facility]. Please see references footnoted in the original [facility] edition 2014 KELLY PIERCE Nov 25, 2016 02:04
[2016-11-25 08:19] VITALS: BP 146/74
[2016-11-25] MEDS: LORazepam 0.5 MG TABLET PO SCH (08:21)
[2016-11-25] MEDS: ASPIRIN ENTERIC COATED 81 MG TABLET.DR. PO SCH (08:22)
[2016-11-25] MEDS: buPROPion XL 150 MG TAB.ER.24H PO SCH (08:22)
[2016-11-25] MEDS: LOSARTAN 50 MG TABLET. PO SCH (08:22)
[2016-11-25] MEDS: LACTOBACILLUS ACIDOPH & BULGAR 1 TABLET. PO SCH (08:41)
[2016-11-25] MEDS: FUROSEMIDE 40 MG TABLET PO SCH (08:42)
[2016-11-25] MEDS: CHOLECALCIFEROL (VITAMIN D3) 1,000 UNIT TABLET PO SCH (08:42)
[2016-11-25] MEDS: QUEtiapine 25 MG TABLET. PO SCH (12:00)
[2016-11-25 15:51] VITALS: BP 129/70
[2016-11-25] MEDS: ATORVASTATIN CALCIUM 20 MG TABLET PO SCH (19:26)
[2016-11-25] MEDS: DONEPEZIL HCL 10 MG TABLET PO SCH (19:26)
[2016-11-25] MEDS: risperiDONE ORAL 1 MG/ML 30ml BOTTLE. SL SCH (19:30)
[2016-11-25] MEDS: traZODone 50 MG TABLET. PO SCH (19:47)
[2016-11-25] MEDS: MIRTAZAPINE 15 MG TABLET PO SCH (19:47)
--- NOTE | 2016-11-25 21:54 | PDOC ---
Exam Andrez Demential Exam: Andrez Note: Please also refer to the separate dictated note~for this date of service dictated separately.~Patient seen individually. Discussed the patient with Nursing staff reviewed the chart.~Reviewed interim history and current functioning. Reviewed vital signs,~Labs/ Radiology~and current medications noted below. Continue current treatment with the changes noted in the dictated addendum note Assessment: Vital Signs: Vital Signs Date Time Temp Pulse Resp B/P (MAP) Pulse Ox O2 Delivery O2 Flow Rate FiO2 11/25/16 15:51 99.0 70 20 129/70 (89) 98 11/22/16 11:50 Room Air I&O Intake and Output 11/25/16 07:00 Intake Total 1080 ml Balance 1080 ml Intake Oral 1080 ml Current Medications: Meds: Current Medications Donepezil HCl (Aricept) 5 mg HS PO Last administered on 11/22/16 20:39; Start 11/22/16 at 21:00; Stop 11/23/16 at 16:37; Status DC Lorazepam (Ativan) 0.25 mg DAILY PO Last administered on 11/25/16 08:21; Start 11/23/16 at 09:00 Quetiapine Fumarate (SEROquel) 25 mg NOON PO Last administered on 11/24/16 11: 34; Start 11/23/16 at 12:00; Stop 11/25/16 at 17:06; Status DC Acetaminophen (Tylenol) 650 mg PRN Q6HRS PRN PO PAIN / TEMP; Start 11/22/16 at 14:15; Stop 11/23/16 at 12:34; Status DC Multi-Ingredient Ointment (Analgesic [place]) 1 vicki PRN QID PRN TP MUSCLE PAIN; Start 11/22/16 at 14:15 Al Hydroxide/Mg Hydroxide (Mylanta Plus Xs) 15 ml PRN AFTMEALHC PRN PO DYSPEPSIA; Start 11/22/16 at 14:15 Magnesium Hydroxide (Milk Of Magnesia) 2,400 mg PRN QHS PRN PO CONSTIPATION; Start 11/22/16 at 14:15 Acetaminophen (Tylenol) 650 mg PRN Q4HRS PO ; Start 11/23/16 at 07:15 Aspirin (Aspirin Enteric Coated) 81 mg DAILY PO Last administered on 11/25/16 08:22; Start 11/23/16 at 09:00 Vitamin D (Vitamin D3) 2,000 unit DAILY PO Last administered on 11/23/16 09:13 ; Start 11/23/16 at 09:00 Diltiazem HCl (Cardizem 24hr Cd) 240 mg DAILY PO Last administered on 09:14; Start 11/23/16 at 09:00 Furosemide (Lasix) 40 mg DAILY PO Last administered on 11/23/16 09:14; Start 11/23/16 at 09:00 Losartan Potassium (Cozaar) 50 mg DAILY PO Last administered on 11/25/16 08:22 ; Start 11/23/16 at 09:00 Lactobacillus Acidophilus (Bacid, Amparo-Bid) 1 tab DAILY PO Last administered on 11/23/16 09:13; Start 11/23/16 at 09:00 Atorvastatin Calcium (Lipitor) 40 mg QHS PO Last administered on 11/25/16 19: 26; Start 11/23/16 at 21:00 Vitamin D (Vitamin D3) 50,000 unit WEEKLY PO ; Start 11/24/16 at 09:00 Donepezil HCl (Aricept) 10 mg QHS PO Last administered on 11/25/16 19:26; Start 11/23/16 at 21:00 Bupropion HCl (Wellbutrin Xl) 150 mg DAILY PO Last administered on 11/25/16 08 :22; Start 11/24/16 at 09:00; Stop 11/25/16 at 17:06; Status DC Mirtazapine (Remeron) 7.5 mg QHS PO Last administered on 11/24/16 19:55; Start 11/23/16 at 21:00; Stop 11/25/16 at 17:08; Status DC Olanzapine (ZyPREXA ZYDIS) 2.5 mg PRN Q2HR PRN PO PSYCHOSIS Last administered on 11/24/16 23:07; Start 11/23/16 at 18:30 Risperidone (RisperDAL) 0.125 mg QHS SL Last administered on 11/24/16 11:35; Start 11/24/16 at 11:00; Stop 11/25/16 at 17:08; Status DC Mirtazapine (Remeron) 15 mg QHS PO Last administered on 11/25/16 19:47; Start 11/25/16 at 21:00 Risperidone (RisperDAL) 0.25 mg QHS SL Last administered on 11/25/16 19:30; Start 11/25/16 at 21:00 Trazodone HCl (Desyrel) 50 mg QHS PO Last administered on 11/25/16 19:47; Start 11/25/16 at 21:00 Trazodone HCl (Desyrel) 50 mg PRN QHS PRN PO INSOMNIA; Start 11/25/16 at 17:15 Active Scripts Active Reported Vitamin D3 (Cholecalciferol (Vitamin D3)) 1,000 Unit Tablet 2,000 Unit PO DAILY Santyl (Collagenase Clostridium Hist.) 30 Gm Oint...g. 30 Gm TP DAILY Crestor (Rosuvastatin Calcium) 10 Mg Tablet 10 Mg PO DAILY Probiotic (Lactobacillus Combo No.10) 1 Each Capsule 1 Each PO DAILY Losartan Potassium 50 Mg Tablet 50 Mg PO DAILY Lorazepam 0.5 Mg Tablet 0.25 Mg PO DAILY Lasix (Furosemide) 40 Mg Tablet 40 Mg PO DAILY Donepezil Hcl 5 Mg Tablet 5 Mg PO HS Diltiazem 24HR Cd (Diltiazem Hcl) 120 Mg Cap.er.24h 240 Mg PO Aspir-Low (Aspirin) 81 Mg Tablet.dr 81 Mg PO Tylenol (Acetaminophen) 325 Mg Tablet 650 Mg PO Seroquel (Quetiapine Fumarate) 25 Mg Tablet 25 Tab PO NOON SAVAGE CASTILLO MD Nov 25, 2016 21:54
[2016-11-25] MEDS: traZODone 50 MG TABLET. PO PRN (22:45)
--- NOTE | 2016-11-26 03:33 | PN ---
DATE: 11/24/2016 This note covers the elements not covered in my initial note. SUBJECTIVE: The patient was staffed at treatment team meeting with the entire team morning and patient's daughter, Leticia, attended the conference together with grandson. I had a lengthy discussion about the patient's history, which is a 4-year history of worsening psychiatric symptoms following a thyroid surgery which resulted in hypercalcemia. Reviewed the patient's progress, current psychotropics, she is noncompliant with the medications, last night paranoid, not eating well, needing food wrapped in wrappers and sealed before she will open it herself and eat it. She, however, did better for breakfast today. REVIEW OF SYSTEMS: No CV, , pulmonary, eye, ENT system symptoms on review. MENTAL STATUS EXAM: Oriented to herself. Insight, judgment, recent and remote memory, attention, concentration, fund of knowledge poor, consistent with her diagnosis mentioned in my initial note. PLAN: Change Seroquel to Risperdal 0.125 mg daily. Maintain Wellbutrin, Remeron, Aricept along with Zyprexa p.r.n. Adjust further as clinically indicated. MAN Kam CASTILLO MD DR: DION/soto JOB#: [id number] / [id number]
--- NOTE | 2016-11-26 05:22 | PN ---
DATE: 11/25/2016 This note covers elements not covered in my initial note of 11/25/2016. SUBJECTIVE: The patient was seen individually in the evening of 11/25/2016. Per nursing report yesterday, she was social, compliant with her medications. She did not sleep at all last night, was psychotic, paranoid, delusional last evening, at times grandiose. [facility] to isolate herself from the others, was combative. During the day today, she believes she is being filmed, people are watching her, refused her medications, has refused to eat anything at all. REVIEW OF SYSTEMS: No CV, , pulmonary, eye, ENT system symptoms on review. Reliability varies. MENTAL STATUS EXAM: Oriented to herself, at times to situation. Speech is coherent, abstraction fair, computation impaired, language function intact. Attention span short. She is quite paranoid, psychotic, delusional. LABORATORY DATA: Reviewed. IMPRESSION: Psychotic disorder, unspecified; major neurocognitive disorder, Alzheimer, vascular with delusion, depression, behavioral disturbance; bipolar 1 disorder, mixed with psychotic features. PLAN: Stop the Wellbutrin since it could be increasing irritability. Increase Remeron to 15 mg at bedtime, may use sublingual. Start trazodone 50 mg at bedtime, may repeat x 1 p.r.n. insomnia. Discontinue Seroquel 25 mg a day since we have started her on Risperdal, which we will increase to 0.25 mg p.o. at bedtime. Make further adjustments as clinically indicated. SAVAGE CASTILLO MD DR: DION/soto JOB#: [id number] / [id number]
[2016-11-26 05:46] VITALS: BP 91/52
[2016-11-26] MEDS: LOSARTAN 50 MG TABLET. PO SCH (09:00)
--- NOTE | 2016-11-26 11:46 | PDOC ---
Exam Andrez Demential Exam: Andrez Note: Please also refer to the separate dictated note~for this date of service dictated separately.~Patient seen individually. Discussed the patient with Nursing staff reviewed the chart.~Reviewed interim history and current functioning. Reviewed vital signs,~Labs/ Radiology~and current medications noted below. Continue current treatment with the changes noted in the dictated addendum note Assessment: Vital Signs: Vital Signs Date Time Temp Pulse Resp B/P (MAP) Pulse Ox O2 Delivery O2 Flow Rate FiO2 11/26/16 05:46 97.8 81 16 91/52 (65) 95 11/22/16 11:50 Room Air I&O Intake and Output 11/26/16 07:00 Intake Total 540 ml Balance 540 ml Intake Oral 540 ml Current Medications: Meds: Current Medications Donepezil HCl (Aricept) 5 mg HS PO Last administered on 11/22/16 20:39; Start 11/22/16 at 21:00; Stop 11/23/16 at 16:37; Status DC Lorazepam (Ativan) 0.25 mg DAILY PO Last administered on 11/25/16 08:21; Start 11/23/16 at 09:00 Quetiapine Fumarate (SEROquel) 25 mg NOON PO Last administered on 11/24/16 11: 34; Start 11/23/16 at 12:00; Stop 11/25/16 at 17:06; Status DC Acetaminophen (Tylenol) 650 mg PRN Q6HRS PRN PO PAIN / TEMP; Start 11/22/16 at 14:15; Stop 11/23/16 at 12:34; Status DC Multi-Ingredient Ointment (Analgesic [place]) 1 vicki PRN QID PRN TP MUSCLE PAIN; Start 11/22/16 at 14:15 Al Hydroxide/Mg Hydroxide (Mylanta Plus Xs) 15 ml PRN AFTMEALHC PRN PO DYSPEPSIA; Start 11/22/16 at 14:15 Magnesium Hydroxide (Milk Of Magnesia) 2,400 mg PRN QHS PRN PO CONSTIPATION; Start 11/22/16 at 14:15 Acetaminophen (Tylenol) 650 mg PRN Q4HRS PO ; Start 11/23/16 at 07:15 Aspirin (Aspirin Enteric Coated) 81 mg DAILY PO Last administered on 11/25/16 08:22; Start 11/23/16 at 09:00 Vitamin D (Vitamin D3) 2,000 unit DAILY PO Last administered on 11/23/16 09:13 ; Start 11/23/16 at 09:00 Diltiazem HCl (Cardizem 24hr Cd) 240 mg DAILY PO Last administered on 09:14; Start 11/23/16 at 09:00 Furosemide (Lasix) 40 mg DAILY PO Last administered on 11/23/16 09:14; Start 11/23/16 at 09:00 Losartan Potassium (Cozaar) 50 mg DAILY PO Last administered on 11/25/16 08:22 ; Start 11/23/16 at 09:00 Lactobacillus Acidophilus (Bacid, Amparo-Bid) 1 tab DAILY PO Last administered on 11/23/16 09:13; Start 11/23/16 at 09:00 Atorvastatin Calcium (Lipitor) 40 mg QHS PO Last administered on 11/25/16 19: 26; Start 11/23/16 at 21:00 Vitamin D (Vitamin D3) 50,000 unit WEEKLY PO ; Start 11/24/16 at 09:00 Donepezil HCl (Aricept) 10 mg QHS PO Last administered on 11/25/16 19:26; Start 11/23/16 at 21:00 Bupropion HCl (Wellbutrin Xl) 150 mg DAILY PO Last administered on 11/25/16 08 :22; Start 11/24/16 at 09:00; Stop 11/25/16 at 17:06; Status DC Mirtazapine (Remeron) 7.5 mg QHS PO Last administered on 11/24/16 19:55; Start 11/23/16 at 21:00; Stop 11/25/16 at 17:08; Status DC Olanzapine (ZyPREXA ZYDIS) 2.5 mg PRN Q2HR PRN PO PSYCHOSIS Last administered on 11/24/16 23:07; Start 11/23/16 at 18:30 Risperidone (RisperDAL) 0.125 mg QHS SL Last administered on 11/24/16 11:35; Start 11/24/16 at 11:00; Stop 11/25/16 at 17:08; Status DC Mirtazapine (Remeron) 15 mg QHS PO Last administered on 11/25/16 19:47; Start 11/25/16 at 21:00 Risperidone (RisperDAL) 0.25 mg QHS SL Last administered on 11/25/16 19:30; Start 11/25/16 at 21:00 Trazodone HCl (Desyrel) 50 mg QHS PO Last administered on 11/25/16 19:47; Start 11/25/16 at 21:00 Trazodone HCl (Desyrel) 50 mg PRN QHS PRN PO INSOMNIA Last administered on 11/25 22:45; Start 11/25/16 at 17:15 Active Scripts Active Reported Vitamin D3 (Cholecalciferol (Vitamin D3)) 1,000 Unit Tablet 2,000 Unit PO DAILY Santyl (Collagenase Clostridium Hist.) 30 Gm Oint...g. 30 Gm TP DAILY Crestor (Rosuvastatin Calcium) 10 Mg Tablet 10 Mg PO DAILY Probiotic (Lactobacillus Combo No.10) 1 Each Capsule 1 Each PO DAILY Losartan Potassium 50 Mg Tablet 50 Mg PO DAILY Lorazepam 0.5 Mg Tablet 0.25 Mg PO DAILY Lasix (Furosemide) 40 Mg Tablet 40 Mg PO DAILY Donepezil Hcl 5 Mg Tablet 5 Mg PO HS Diltiazem 24HR Cd (Diltiazem Hcl) 120 Mg Cap.er.24h 240 Mg PO Aspir-Low (Aspirin) 81 Mg Tablet.dr 81 Mg PO Tylenol (Acetaminophen) 325 Mg Tablet 650 Mg PO Seroquel (Quetiapine Fumarate) 25 Mg Tablet 25 Tab PO SAVAGE DUMONT MD Nov 26, 2016 11:46
[2016-11-26] MEDS: ASPIRIN ENTERIC COATED 81 MG TABLET.DR. PO SCH (12:40)
[2016-11-26] MEDS: CHOLECALCIFEROL (VITAMIN D3) 1,000 UNIT TABLET PO SCH (12:41)
[2016-11-26] MEDS: FUROSEMIDE 40 MG TABLET PO SCH (12:41)
[2016-11-26] MEDS: LACTOBACILLUS ACIDOPH & BULGAR 1 TABLET. PO SCH (12:41)
[2016-11-26] MEDS: LORazepam 0.5 MG TABLET PO SCH (12:42)
[2016-11-26 15:30] VITALS: BP 104/63
[2016-11-26] MEDS: traZODone 50 MG TABLET. PO SCH (19:23)
[2016-11-26] MEDS: DONEPEZIL HCL 10 MG TABLET PO SCH (19:23)
[2016-11-26] MEDS: MIRTAZAPINE 15 MG TABLET PO SCH (19:23)
[2016-11-26] MEDS: ATORVASTATIN CALCIUM 20 MG TABLET PO SCH (19:23)
[2016-11-26] MEDS: risperiDONE ORAL 1 MG/ML 30ml BOTTLE. SL SCH (19:24)
[2016-11-26] MEDS: traZODone 50 MG TABLET. PO PRN (22:40)
[2016-11-27 05:54] VITALS: BP 138/72
[2016-11-27 08:00] VITALS: BP 108/48
[2016-11-27 08:04] LABS: BASO # 0.1 x10^3/uL (0.0-0.2); BASO % 1 % (0-3); EOS # 0.1 x10^3/uL (0.0-0.7); EOS % 1 % (0-3); HEMATOCRIT 35.8 % (36.0-47.0); HEMOGLOBIN 12.2 g/dL (12.0-15.5); LYMPH # 2.1 x10^3/uL (1.0-4.8); LYMPH % 23 % (24-48); MEAN CORPUSCULAR HEMOGLOBIN 30 pg (25-35); MEAN CORPUSCULAR HGB CONC 34 g/dL (31-37); MEAN CORPUSCULAR VOLUME 89 fL (79-100); MONO # 0.7 x10^3/uL (0.0-1.1); MONO % 8 % (0-9); NEUT # 6.2 x10^3uL (1.8-7.7); NEUT % 67 % (31-73); PLATELET COUNT 192 x10^3/uL (140-400); RED BLOOD COUNT 4.02 x10^6/uL (3.50-5.40); RED CELL DISTRIBUTION WIDTH 12.8 % (11.5-14.5); WHITE BLOOD COUNT 9.2 x10^3/uL (4.0-11.0)
[2016-11-27 08:21] LABS: ALBUMIN/GLOBULIN RATIO 1.1 (1.0-1.7); CALCIUM 9.3 mg/dL (8.5-10.1); CREATININE 0.8 mg/dL (0.6-1.0); GFR 67.8; POTASSIUM 3.4 mmol/L (3.5-5.1); TOTAL PROTEIN 5.8 g/dL (6.4-8.2)
[2016-11-27] MEDS: FUROSEMIDE 40 MG TABLET PO SCH (09:00)
[2016-11-27] MEDS: LOSARTAN 50 MG TABLET. PO SCH (09:00)
[2016-11-27] MEDS: CHOLECALCIFEROL (VITAMIN D3) 1,000 UNIT TABLET PO SCH (09:18)
[2016-11-27] MEDS: ASPIRIN ENTERIC COATED 81 MG TABLET.DR. PO SCH (09:18)
[2016-11-27] MEDS: LACTOBACILLUS ACIDOPH & BULGAR 1 TABLET. PO SCH (09:18)
[2016-11-27 09:24] VITALS: BP 104/62
[2016-11-27] MEDS: LORazepam 0.5 MG TABLET PO SCH (09:24)
--- NOTE | 2016-11-27 10:01 | PN ---
DATE: 11/26/2016 This is a late entry for 11/26/2016 and covers elements not covered in my initial note. I met with the patient evening of 11/26/2016. On the morning 11/26/2016, she was noncompliant with medications, somewhat delusional, paranoid, sarcastic, agitated, hallucinating, but then better as the day has gone on. Overall, today has been better than yesterday. REVIEW OF SYSTEMS: No CV, , pulmonary, eye, ENT system symptoms on review. Less paranoid about food and wanted a bag of cookies, as I met with her, which I went and got for her and she was appreciative of this, "I need this I can't go to sleep tonight." No CV, , pulmonary, eye, ENT system symptoms on review. MENTAL STATUS EXAM: Oriented to herself and situation. Speech has some latency, coherent. Abstraction fair, computation impaired, language function intact. Mood and affect improved. LABORATORY DATA: Reviewed. IMPRESSION: Unchanged from initial note. PLAN: Continue current psychotropics. Adjust further as clinically indicated. SAVAGE CASTILLO MD DR: DION/soto JOB#: [id number] / [id number]
[2016-11-27 15:56] VITALS: BP 120/68
--- NOTE | 2016-11-27 19:51 | PDOC ---
Exam Andrez Demential Exam: Andrez Note: Please also refer to the separate dictated note~for this date of service dictated separately.~Patient seen individually. Discussed the patient with Nursing staff reviewed the chart.~Reviewed interim history and current functioning. Reviewed vital signs,~Labs/ Radiology~and current medications noted below. Continue current treatment with the changes noted in the dictated addendum note Assessment: Vital Signs: Vital Signs Date Time Temp Pulse Resp B/P (MAP) Pulse Ox O2 Delivery O2 Flow Rate FiO2 11/27/16 15:56 98.1 74 16 120/68 (85) 96 Room Air I&O Intake and Output 11/27/16 07:00 Intake Total 600 ml Balance 600 ml Intake Oral 600 ml Labs: Laboratory Tests Test 11/27/16 07:55 11/27/16 08:02 White Blood Count 9.2 x10^3/uL (4.0-11.0) Red Blood Count 4.02 x10^6/uL (3.50-5.40) Hemoglobin 12.2 g/dL (12.0-15.5) Hematocrit 35.8 % (36.0-47.0) L Mean Corpuscular Volume 89 fL (79-100) Mean Corpuscular Hemoglobin 30 pg (25-35) Mean Corpuscular Hemoglobin Concent 34 g/dL (31-37) Red Cell Distribution Width 12.8 % (11.5-14.5) Platelet Count 192 x10^3/uL (140-400) Neutrophils (%) (Auto) 67 % (31-73) Lymphocytes (%) (Auto) 23 % (24-48) L Monocytes (%) (Auto) 8 % (0-9) Eosinophils (%) (Auto) 1 % (0-3) Basophils (%) (Auto) 1 % (0-3) Neutrophils # (Auto) 6.2 x10^3uL (1.8-7.7) Lymphocytes # (Auto) 2.1 x10^3/uL (1.0-4.8) Monocytes # (Auto) 0.7 x10^3/uL (0.0-1.1) Eosinophils # (Auto) 0.1 x10^3/uL (0.0-0.7) Basophils # (Auto) 0.1 x10^3/uL (0.0-0.2) Sodium Level 143 mmol/L (136-145) Potassium Level 3.4 mmol/L (3.5-5.1) L Chloride Level 104 mmol/L (98-107) Carbon Dioxide Level 33 mmol/L (21-32) H Anion Gap 6 (6-14) Blood Urea Nitrogen 21 mg/dL (7-20) H Creatinine 0.8 mg/dL (0.6-1.0) Estimated GFR (Cockcroft-Gault) 67.8 BUN/Creatinine Ratio 26 (6-20) H Glucose Level 92 mg/dL (70-99) Calcium Level 9.3 mg/dL (8.5-10.1) Total Bilirubin 1.0 mg/dL (0.2-1.0) Aspartate Amino Transferase (AST) 16 U/L (15-37) Alanine Aminotransferase (ALT) 16 U/L (14-59) Alkaline Phosphatase 84 U/L (46-116) Total Protein 5.8 g/dL (6.4-8.2) L Albumin 3.0 g/dL (3.4-5.0) L Albumin/Globulin Ratio 1.1 (1.0-1.7) Glucose (Fingerstick) 85 mg/dL (70-99) Current Medications: Meds: Current Medications Donepezil HCl (Aricept) 5 mg HS PO Last administered on 11/22/16 20:39; Start 11/22/16 at 21:00; Stop 11/23/16 at 16:37; Status DC Lorazepam (Ativan) 0.25 mg DAILY PO Last administered on 11/27/16 09:24; Start 11/23/16 at 09:00 Quetiapine Fumarate (SEROquel) 25 mg NOON PO Last administered on 11/24/16 11: 34; Start 11/23/16 at 12:00; Stop 11/25/16 at 17:06; Status DC Acetaminophen (Tylenol) 650 mg PRN Q6HRS PRN PO PAIN / TEMP; Start 11/22/16 at 14:15; Stop 11/23/16 at 12:34; Status DC Multi-Ingredient Ointment (Analgesic [place]) 1 vicki PRN QID PRN TP MUSCLE PAIN; Start 11/22/16 at 14:15 Al Hydroxide/Mg Hydroxide (Mylanta Plus Xs) 15 ml PRN AFTMEALHC PRN PO DYSPEPSIA; Start 11/22/16 at 14:15 Magnesium Hydroxide (Milk Of Magnesia) 2,400 mg PRN QHS PRN PO CONSTIPATION; Start 11/22/16 at 14:15 Acetaminophen (Tylenol) 650 mg PRN Q4HRS PO ; Start 11/23/16 at 07:15 Aspirin (Aspirin Enteric Coated) 81 mg DAILY PO Last administered on 11/27/16 09:18; Start 11/23/16 at 09:00 Vitamin D (Vitamin D3) 2,000 unit DAILY PO Last administered on 11/27/16 09:18 ; Start 11/23/16 at 09:00 Diltiazem HCl (Cardizem 24hr Cd) 240 mg DAILY PO Last administered on 09:18; Start 11/23/16 at 09:00 Furosemide (Lasix) 40 mg DAILY PO Last administered on 11/26/16 12:41; Start 11/23/16 at 09:00 Losartan Potassium (Cozaar) 50 mg DAILY PO Last administered on 11/25/16 08:22 ; Start 11/23/16 at 09:00 Lactobacillus Acidophilus (Bacid, Amparo-Bid) 1 tab DAILY PO Last administered on 11/27/16 09:18; Start 11/23/16 at 09:00 Atorvastatin Calcium (Lipitor) 40 mg QHS PO Last administered on 11/26/16 19: 23; Start 11/23/16 at 21:00 Vitamin D (Vitamin D3) 50,000 unit WEEKLY PO ; Start 11/24/16 at 09:00 Donepezil HCl (Aricept) 10 mg QHS PO Last administered on 11/26/16 19:23; Start 11/23/16 at 21:00 Bupropion HCl (Wellbutrin Xl) 150 mg DAILY PO Last administered on 11/25/16 08 :22; Start 11/24/16 at 09:00; Stop 11/25/16 at 17:06; Status DC Mirtazapine (Remeron) 7.5 mg QHS PO Last administered on 11/24/16 19:55; Start 11/23/16 at 21:00; Stop 11/25/16 at 17:08; Status DC Olanzapine (ZyPREXA ZYDIS) 2.5 mg PRN Q2HR PRN PO PSYCHOSIS Last administered on 11/24/16 23:07; Start 11/23/16 at 18:30 Risperidone (RisperDAL) 0.125 mg QHS SL Last administered on 11/24/16 11:35; Start 11/24/16 at 11:00; Stop 11/25/16 at 17:08; Status DC Mirtazapine (Remeron) 15 mg QHS PO Last administered on 11/26/16 19:23; Start 11/25/16 at 21:00 Risperidone (RisperDAL) 0.25 mg QHS SL Last administered on 11/26/16 19:24; Start 11/25/16 at 21:00 Trazodone HCl (Desyrel) 50 mg QHS PO Last administered on 11/26/16 19:23; Start 11/25/16 at 21:00 Trazodone HCl (Desyrel) 50 mg PRN QHS PRN PO INSOMNIA Last administered on 11/26 22:40; Start 11/25/16 at 17:15 Active Scripts Active Reported Vitamin D3 (Cholecalciferol (Vitamin D3)) 1,000 Unit Tablet 2,000 Unit PO DAILY Santyl (Collagenase Clostridium Hist.) 30 Gm Oint...g. 30 Gm TP DAILY Crestor (Rosuvastatin Calcium) 10 Mg Tablet 10 Mg PO DAILY Probiotic (Lactobacillus Combo No.10) 1 Each Capsule 1 Each PO DAILY Losartan Potassium 50 Mg Tablet 50 Mg PO DAILY Lorazepam 0.5 Mg Tablet 0.25 Mg PO DAILY Lasix (Furosemide) 40 Mg Tablet 40 Mg PO DAILY Donepezil Hcl 5 Mg Tablet 5 Mg PO HS Diltiazem 24HR Cd (Diltiazem Hcl) 120 Mg Cap.er.24h 240 Mg PO Aspir-Low (Aspirin) 81 Mg Tablet.dr 81 Mg PO Tylenol (Acetaminophen) 325 Mg Tablet 650 Mg PO Seroquel (Quetiapine Fumarate) 25 Mg Tablet 25 Tab PO SAVAGE DUMONT MD Nov 27, 2016 19:51
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
[2016-11-27] MEDS: MIRTAZAPINE 15 MG TABLET PO SCH (20:27)
[2016-11-27] MEDS: DONEPEZIL HCL 10 MG TABLET PO SCH (20:27)
[2016-11-27] MEDS: ATORVASTATIN CALCIUM 20 MG TABLET PO SCH (20:27)
[2016-11-27] MEDS: traZODone 50 MG TABLET. PO SCH (20:27)
[2016-11-27] MEDS: risperiDONE ORAL 1 MG/ML 30ml BOTTLE. SL SCH (20:29)
[2016-11-28 06:27] VITALS: BP 130/70
[2016-11-28] MEDS: ASPIRIN ENTERIC COATED 81 MG TABLET.DR. PO SCH (09:18)
[2016-11-28] MEDS: LORazepam 0.5 MG TABLET PO SCH (09:19)
[2016-11-28] MEDS: LACTOBACILLUS ACIDOPH & BULGAR 1 TABLET. PO SCH (09:20)
[2016-11-28] MEDS: LOSARTAN 50 MG TABLET. PO SCH (09:20)
[2016-11-28] MEDS: FUROSEMIDE 40 MG TABLET PO SCH (09:20)
[2016-11-28] MEDS: CHOLECALCIFEROL (VITAMIN D3) 1,000 UNIT TABLET PO SCH (09:21)
[2016-11-28 16:29] VITALS: BP 103/66
[2016-11-28] MEDS: ATORVASTATIN CALCIUM 20 MG TABLET PO SCH (19:38)
[2016-11-28] MEDS: DONEPEZIL HCL 10 MG TABLET PO SCH (19:38)
[2016-11-28] MEDS: MIRTAZAPINE 15 MG TABLET PO SCH (19:39)
[2016-11-28] MEDS: traZODone 50 MG TABLET. PO SCH (19:39)
[2016-11-28] MEDS: risperiDONE ORAL 1 MG/ML 30ml BOTTLE. SL SCH (19:44)
--- NOTE | 2016-11-28 19:44 | PDOC ---
Exam Andrez Demential Exam: Andrez Note: Please also refer to the separate dictated note~for this date of service dictated separately.~Patient seen individually. Discussed the patient with Nursing staff reviewed the chart.~Reviewed interim history and current functioning. Reviewed vital signs,~Labs/ Radiology~and current medications noted below. Continue current treatment with the changes noted in the dictated addendum note Assessment: Vital Signs: Vital Signs Date Time Temp Pulse Resp B/P (MAP) Pulse Ox O2 Delivery O2 Flow Rate FiO2 11/28/16 16:29 97.8 71 18 103/66 (78) 97 Room Air I&O Intake and Output 11/28/16 07:00 Intake Total 940 ml Balance 940 ml Intake Oral 940 ml Current Medications: Meds: Current Medications Donepezil HCl (Aricept) 5 mg HS PO Last administered on 11/22/16 20:39; Start 11/22/16 at 21:00; Stop 11/23/16 at 16:37; Status DC Lorazepam (Ativan) 0.25 mg DAILY PO Last administered on 11/28/16 09:19; Start 11/23/16 at 09:00; Stop 11/28/16 at 18:46; Status DC Quetiapine Fumarate (SEROquel) 25 mg NOON PO Last administered on 11/24/16 11: 34; Start 11/23/16 at 12:00; Stop 11/25/16 at 17:06; Status DC Acetaminophen (Tylenol) 650 mg PRN Q6HRS PRN PO PAIN / TEMP; Start 11/22/16 at 14:15; Stop 11/23/16 at 12:34; Status DC Multi-Ingredient Ointment (Analgesic [place]) 1 vicki PRN QID PRN TP MUSCLE PAIN; Start 11/22/16 at 14:15 Al Hydroxide/Mg Hydroxide (Mylanta Plus Xs) 15 ml PRN AFTMEALHC PRN PO DYSPEPSIA; Start 11/22/16 at 14:15 Magnesium Hydroxide (Milk Of Magnesia) 2,400 mg PRN QHS PRN PO CONSTIPATION; Start 11/22/16 at 14:15 Acetaminophen (Tylenol) 650 mg PRN Q4HRS PO Last administered on 11/27/16 20: 29; Start 11/23/16 at 07:15 Aspirin (Aspirin Enteric Coated) 81 mg DAILY PO Last administered on 11/28/16 09:18; Start 11/23/16 at 09:00 Vitamin D (Vitamin D3) 2,000 unit DAILY PO Last administered on 11/28/16 09:21 ; Start 11/23/16 at 09:00 Diltiazem HCl (Cardizem 24hr Cd) 240 mg DAILY PO Last administered on 09:20; Start 11/23/16 at 09:00 Furosemide (Lasix) 40 mg DAILY PO Last administered on 11/28/16 09:20; Start 11/23/16 at 09:00 Losartan Potassium (Cozaar) 50 mg DAILY PO Last administered on 11/28/16 09:20 ; Start 11/23/16 at 09:00 Lactobacillus Acidophilus (Bacid, Amparo-Bid) 1 tab DAILY PO Last administered on 11/28/16 09:20; Start 11/23/16 at 09:00 Atorvastatin Calcium (Lipitor) 40 mg QHS PO Last administered on 11/27/16 20: 27; Start 11/23/16 at 21:00 Vitamin D (Vitamin D3) 50,000 unit WEEKLY PO ; Start 11/24/16 at 09:00 Donepezil HCl (Aricept) 10 mg QHS PO Last administered on 11/27/16 20:27; Start 11/23/16 at 21:00 Bupropion HCl (Wellbutrin Xl) 150 mg DAILY PO Last administered on 11/25/16 08 :22; Start 11/24/16 at 09:00; Stop 11/25/16 at 17:06; Status DC Mirtazapine (Remeron) 7.5 mg QHS PO Last administered on 11/24/16 19:55; Start 11/23/16 at 21:00; Stop 11/25/16 at 17:08; Status DC Olanzapine (ZyPREXA ZYDIS) 2.5 mg PRN Q2HR PRN PO PSYCHOSIS Last administered on 11/24/16 23:07; Start 11/23/16 at 18:30 Risperidone (RisperDAL) 0.125 mg QHS SL Last administered on 11/24/16 11:35; Start 11/24/16 at 11:00; Stop 11/25/16 at 17:08; Status DC Mirtazapine (Remeron) 15 mg QHS PO Last administered on 11/27/16 20:27; Start 11/25/16 at 21:00 Risperidone (RisperDAL) 0.25 mg QHS SL Last administered on 11/27/16 20:29; Start 11/25/16 at 21:00; Stop 11/28/16 at 18:46; Status DC Trazodone HCl (Desyrel) 50 mg QHS PO Last administered on 11/27/16 20:27; Start 11/25/16 at 21:00 Trazodone HCl (Desyrel) 50 mg PRN QHS PRN PO INSOMNIA Last administered on 11/26 22:40; Start 11/25/16 at 17:15 Risperidone (RisperDAL) 0.375 mg QHS SL ; Start 11/28/16 at 21:00 Active Scripts Active Reported Vitamin D3 (Cholecalciferol (Vitamin D3)) 1,000 Unit Tablet 2,000 Unit PO DAILY Santyl (Collagenase Clostridium Hist.) 30 Gm Oint...g. 30 Gm TP DAILY Crestor (Rosuvastatin Calcium) 10 Mg Tablet 10 Mg PO DAILY Probiotic (Lactobacillus Combo No.10) 1 Each Capsule 1 Each PO DAILY Losartan Potassium 50 Mg Tablet 50 Mg PO DAILY Lorazepam 0.5 Mg Tablet 0.25 Mg PO DAILY Lasix (Furosemide) 40 Mg Tablet 40 Mg PO DAILY Donepezil Hcl 5 Mg Tablet 5 Mg PO HS Diltiazem 24HR Cd (Diltiazem Hcl) 120 Mg Cap.er.24h 240 Mg PO Aspir-Low (Aspirin) 81 Mg Tablet.dr 81 Mg PO Tylenol (Acetaminophen) 325 Mg Tablet 650 Mg PO Seroquel (Quetiapine Fumarate) 25 Mg Tablet 25 Tab PO SAVAGE DUMONT MD Nov 28, 2016 19:44
--- NOTE | 2016-11-28 23:22 | PN ---
DATE: 11/27/2016 PSYCHIATRIC PROGRESS NOTE This is a late entry of 11/27/2016 covers elements not covered in my initial note. SUBJECTIVE: The patient was seen individually evening of 11/27/2016. Discussed with nursing staff. Overall, the patient has had a good day more cooperative, still had short-term memory deficits. Mood is less irritable, less depressed. I sat with her at some length in the [facility]. She was watching a television show and was able to recount to me what she had watched previously, which from all account seemed accurate. REVIEW OF SYSTEMS: No CV, , pulmonary, eye, ENT system symptoms on review. MENTAL STATUS EXAM: Oriented to herself and situation. Speech has some latency, coherent. Abstraction fair, computation impaired, language function intact. Mood and affect showing improvement. LABORATORY DATA: Reviewed. IMPRESSION: Major depressive disorder with psychotic features in partial remission; major neurocognitive disorder, vascular with delusion, depression, behavioral disturbance. Rest unchanged. PLAN: Continue Aricept 10 mg a day, Remeron 15 mg at bedtime, Ativan 0.25 mg daily, Zyprexa p.r.n., Risperdal 0.25 mg at bedtime, trazodone 50 mg at bedtime p.r.n. insomnia. Adjust as clinically indicated. MAN Kam CASTILLO MD DR: DION/soto JOB#: [id number] / [id number]
[2016-11-29 06:47] VITALS: BP 104/62
[2016-11-29] MEDS: ASPIRIN ENTERIC COATED 81 MG TABLET.DR. PO SCH (09:45)
[2016-11-29] MEDS: LACTOBACILLUS ACIDOPH & BULGAR 1 TABLET. PO SCH (09:46)
[2016-11-29] MEDS: FUROSEMIDE 40 MG TABLET PO SCH (09:46)
[2016-11-29] MEDS: CHOLECALCIFEROL (VITAMIN D3) 1,000 UNIT TABLET PO SCH (09:46)
[2016-11-29] MEDS: LOSARTAN 50 MG TABLET. PO SCH (09:46)
[2016-11-29] MEDS ORDERED: POTASSIUM CHLORIDE 20 MEQ TABLET.ER. PO ONE (12:30)
[2016-11-29 16:00] VITALS: BP 114/69
[2016-11-29] MEDS: DONEPEZIL HCL 10 MG TABLET PO SCH (19:46)
[2016-11-29] MEDS: MIRTAZAPINE 15 MG TABLET PO SCH (19:46)
[2016-11-29] MEDS: traZODone 50 MG TABLET. PO SCH (19:46)
[2016-11-29] MEDS: ATORVASTATIN CALCIUM 20 MG TABLET PO SCH (19:46)
--- NOTE | 2016-11-29 19:47 | PDOC ---
Exam Andrez Demential Exam: Andrez Note: Please also refer to the separate dictated note~for this date of service dictated separately.~Patient seen individually. Discussed the patient with Nursing staff reviewed the chart.~Reviewed interim history and current functioning. Reviewed vital signs,~Labs/ Radiology~and current medications noted below. Continue current treatment with the changes noted in the dictated addendum note Assessment: Vital Signs: Vital Signs Date Time Temp Pulse Resp B/P (MAP) Pulse Ox O2 Delivery O2 Flow Rate FiO2 11/29/16 16:00 98.9 80 18 114/69 (84) 98 11/29/16 06:47 Room Air I&O Intake and Output 11/29/16 07:00 Intake Total 600 ml Balance 600 ml Intake Oral 600 ml # Voids 1 Current Medications: Meds: Current Medications Donepezil HCl (Aricept) 5 mg HS PO Last administered on 11/22/16 20:39; Start 11/22/16 at 21:00; Stop 11/23/16 at 16:37; Status DC Lorazepam (Ativan) 0.25 mg DAILY PO Last administered on 11/28/16 09:19; Start 11/23/16 at 09:00; Stop 11/28/16 at 18:46; Status DC Quetiapine Fumarate (SEROquel) 25 mg NOON PO Last administered on 11/24/16 11: 34; Start 11/23/16 at 12:00; Stop 11/25/16 at 17:06; Status DC Acetaminophen (Tylenol) 650 mg PRN Q6HRS PRN PO PAIN / TEMP; Start 11/22/16 at 14:15; Stop 11/23/16 at 12:34; Status DC Multi-Ingredient Ointment (Analgesic [place]) 1 vicki PRN QID PRN TP MUSCLE PAIN; Start 11/22/16 at 14:15 Al Hydroxide/Mg Hydroxide (Mylanta Plus Xs) 15 ml PRN AFTMEALHC PRN PO DYSPEPSIA; Start 11/22/16 at 14:15 Magnesium Hydroxide (Milk Of Magnesia) 2,400 mg PRN QHS PRN PO CONSTIPATION; Start 11/22/16 at 14:15 Acetaminophen (Tylenol) 650 mg PRN Q4HRS PO Last administered on 11/27/16 20: 29; Start 11/23/16 at 07:15 Aspirin (Aspirin Enteric Coated) 81 mg DAILY PO Last administered on 11/29/16 09:45; Start 11/23/16 at 09:00 Vitamin D (Vitamin D3) 2,000 unit DAILY PO Last administered on 11/29/16 09:46 ; Start 11/23/16 at 09:00 Diltiazem HCl (Cardizem 24hr Cd) 240 mg DAILY PO Last administered on 09:46; Start 11/23/16 at 09:00 Furosemide (Lasix) 40 mg DAILY PO Last administered on 11/29/16 09:46; Start 11/23/16 at 09:00; Stop 11/29/16 at 11:53; Status DC Losartan Potassium (Cozaar) 50 mg DAILY PO Last administered on 11/29/16 09:46 ; Start 11/23/16 at 09:00 Lactobacillus Acidophilus (Bacid, Amparo-Bid) 1 tab DAILY PO Last administered on 11/29/16 09:46; Start 11/23/16 at 09:00 Atorvastatin Calcium (Lipitor) 40 mg QHS PO Last administered on 11/28/16 19: 38; Start 11/23/16 at 21:00 Vitamin D (Vitamin D3) 50,000 unit WEEKLY PO ; Start 11/24/16 at 09:00 Donepezil HCl (Aricept) 10 mg QHS PO Last administered on 11/28/16 19:38; Start 11/23/16 at 21:00 Bupropion HCl (Wellbutrin Xl) 150 mg DAILY PO Last administered on 11/25/16 08 :22; Start 11/24/16 at 09:00; Stop 11/25/16 at 17:06; Status DC Mirtazapine (Remeron) 7.5 mg QHS PO Last administered on 11/24/16 19:55; Start 11/23/16 at 21:00; Stop 11/25/16 at 17:08; Status DC Olanzapine (ZyPREXA ZYDIS) 2.5 mg PRN Q2HR PRN PO PSYCHOSIS Last administered on 11/24/16 23:07; Start 11/23/16 at 18:30 Risperidone (RisperDAL) 0.125 mg QHS SL Last administered on 7/20/17at 11:35; Start 11/24/16 at 11:00; Stop 11/25/16 at 17:08; Status DC Mirtazapine (Remeron) 15 mg QHS PO Last administered on 11/28/16 19:39; Start 11/25/16 at 21:00 Risperidone (RisperDAL) 0.25 mg QHS SL Last administered on 11/27/16 20:29; Start 11/25/16 at 21:00; Stop 11/28/16 at 18:46; Status DC Trazodone HCl (Desyrel) 50 mg QHS PO Last administered on 11/28/16 19:39; Start 11/25/16 at 21:00 Trazodone HCl (Desyrel) 50 mg PRN QHS PRN PO INSOMNIA Last administered on 11/26 22:40; Start 11/25/16 at 17:15 Risperidone (RisperDAL) 0.375 mg QHS SL Last administered on 11/28/16 19:44; Start 11/28/16 at 21:00 Furosemide (Lasix) 20 mg DAILY PO ; Start 11/30/16 at 09:00 Potassium Chloride (Klor-Con) 20 meq DAILYWBKFT PO ; Start 11/30/16 at 08:00 Potassium Chloride (Klor-Con) 20 meq 1X ONCE PO Last administered on 12:20; Start 11/29/16 at 12:30; Stop 11/29/16 at 12:31; Status DC Active Scripts Active Reported Vitamin D3 (Cholecalciferol (Vitamin D3)) 1,000 Unit Tablet 2,000 Unit PO DAILY Santyl (Collagenase Clostridium Hist.) 30 Gm Oint...g. 30 Gm TP DAILY Crestor (Rosuvastatin Calcium) 10 Mg Tablet 10 Mg PO DAILY Probiotic (Lactobacillus Combo No.10) 1 Each Capsule 1 Each PO DAILY Losartan Potassium 50 Mg Tablet 50 Mg PO DAILY Lorazepam 0.5 Mg Tablet 0.25 Mg PO DAILY Lasix (Furosemide) 40 Mg Tablet 40 Mg PO DAILY Donepezil Hcl 5 Mg Tablet 5 Mg PO HS Diltiazem 24HR Cd (Diltiazem Hcl) 120 Mg Cap.er.24h 240 Mg PO Aspir-Low (Aspirin) 81 Mg Tablet.dr 81 Mg PO Tylenol (Acetaminophen) 325 Mg Tablet 650 Mg PO Seroquel (Quetiapine Fumarate) 25 Mg Tablet 25 Tab PO [place] SAVAGE CASTILLO MD Nov 29, 2016 19:47
[2016-11-29] MEDS: risperiDONE ORAL 1 MG/ML 30ml BOTTLE. SL SCH (19:48)
[2016-11-30 05:18] VITALS: BP 125/65
--- NOTE | 2016-11-30 06:44 | PN ---
DATE: 11/28/2016 PSYCHIATRIC PROGRESS NOTE This is a late entry for 11/28/2016, covers elements not covered in my initial note. SUBJECTIVE: I met with the patient the evening of 11/28/2016. Previous evening, she was quite paranoid, suspicious, and scared that people were being killed here. She had to be placed in the west hallway where she was away from the others to reduce the stimuli, seemed to do a little bit. REVIEW OF SYSTEMS: No CV, , pulmonary, eye, ENT system symptoms on review. MENTAL STATUS EXAM: Oriented to herself and situation. Speech has some latency, coherent. Abstraction fair, computation impaired, language function intact. Mood and affect still dysphoric, slightly paranoid. No active suicidal or homicidal ideation. LABORATORY DATA: Reviewed. IMPRESSION: Unchanged from initial note. PLAN: Increase Risperdal from 0.25 mg at bedtime to 0.375 mg p.o. at bedtime. Maintain Aricept 10 mg a day, Remeron 15 mg at bedtime, Ativan scheduled was stopped. Continue Zyprexa p.r.n., trazodone 50 mg at bedtime and p.r.n. Adjust as clinically indicated. SAVAGE CASTILLO MD DR: DION/soto JOB#: [id number] / [id number]
[2016-11-30] MEDS: LOSARTAN 50 MG TABLET. PO SCH (08:29)
[2016-11-30] MEDS: ASPIRIN ENTERIC COATED 81 MG TABLET.DR. PO SCH (08:29)
[2016-11-30] MEDS: LACTOBACILLUS ACIDOPH & BULGAR 1 TABLET. PO SCH (08:29)
[2016-11-30] MEDS: CHOLECALCIFEROL (VITAMIN D3) 1,000 UNIT TABLET PO SCH (08:30)
[2016-11-30] MEDS: FUROSEMIDE 20 MG TABLET PO SCH (08:31)
[2016-11-30] MEDS: POTASSIUM CHLORIDE 20 MEQ TABLET.ER. PO SCH (08:31)
[2016-11-30 15:56] VITALS: BP 108/68
[2016-11-30] MEDS: MIRTAZAPINE 15 MG TABLET PO SCH ×2 (19:43→20:53)
[2016-11-30] MEDS: traZODone 50 MG TABLET. PO SCH ×2 (19:43→20:53)
[2016-11-30] MEDS: DONEPEZIL HCL 10 MG TABLET PO SCH ×2 (19:43→20:53)
[2016-11-30] MEDS: ATORVASTATIN CALCIUM 20 MG TABLET PO SCH ×2 (19:43→20:53)
[2016-11-30] MEDS: ESCITALOPRAM 10 MG TABLET. PO SCH ×2 (19:45→20:53)
[2016-11-30] MEDS: risperiDONE ORAL 1 MG/ML 30ml BOTTLE. SL SCH ×2 (19:45→20:53)
--- NOTE | 2016-11-30 19:49 | PDOC ---
Exam Andrez Demential Exam: Andrez Note: Please also refer to the separate dictated note~for this date of service dictated separately.~Patient seen individually. Discussed the patient with Nursing staff reviewed the chart.~Reviewed interim history and current functioning. Reviewed vital signs,~Labs/ Radiology~and current medications noted below. Continue current treatment with the changes noted in the dictated addendum note Assessment: Vital Signs: Vital Signs Date Time Temp Pulse Resp B/P (MAP) Pulse Ox O2 Delivery O2 Flow Rate FiO2 11/30/16 15:56 98.3 71 20 108/68 (81) 93 Room Air I&O Intake and Output 11/30/16 07:00 Intake Total 760 ml Balance 760 ml Intake Oral 760 ml # Voids 1 # Bowel Movements 1 Current Medications: Meds: Current Medications Donepezil HCl (Aricept) 5 mg HS PO Last administered on 11/22/16 20:39; Start 11/22/16 at 21:00; Stop 11/23/16 at 16:37; Status DC Lorazepam (Ativan) 0.25 mg DAILY PO Last administered on 11/28/16 09:19; Start 11/23/16 at 09:00; Stop 11/28/16 at 18:46; Status DC Quetiapine Fumarate (SEROquel) 25 mg NOON PO Last administered on 11/24/16 11: 34; Start 11/23/16 at 12:00; Stop 11/25/16 at 17:06; Status DC Acetaminophen (Tylenol) 650 mg PRN Q6HRS PRN PO PAIN / TEMP; Start 11/22/16 at 14:15; Stop 11/23/16 at 12:34; Status DC Multi-Ingredient Ointment (Analgesic [place]) 1 vicki PRN QID PRN TP MUSCLE PAIN; Start 11/22/16 at 14:15 Al Hydroxide/Mg Hydroxide (Mylanta Plus Xs) 15 ml PRN AFTMEALHC PRN PO DYSPEPSIA; Start 11/22/16 at 14:15 Magnesium Hydroxide (Milk Of Magnesia) 2,400 mg PRN QHS PRN PO CONSTIPATION; Start 11/22/16 at 14:15 Acetaminophen (Tylenol) 650 mg PRN Q4HRS PO Last administered on 11/27/16 20: 29; Start 11/23/16 at 07:15 Aspirin (Aspirin Enteric Coated) 81 mg DAILY PO Last administered on 11/30/16 08:29; Start 11/23/16 at 09:00 Vitamin D (Vitamin D3) 2,000 unit DAILY PO Last administered on 11/30/16 08:30 ; Start 11/23/16 at 09:00 Diltiazem HCl (Cardizem 24hr Cd) 240 mg DAILY PO Last administered on 08:29; Start 11/23/16 at 09:00 Furosemide (Lasix) 40 mg DAILY PO Last administered on 11/29/16 09:46; Start 11/23/16 at 09:00; Stop 11/29/16 at 11:53; Status DC Losartan Potassium (Cozaar) 50 mg DAILY PO Last administered on 11/30/16 08:29 ; Start 11/23/16 at 09:00 Lactobacillus Acidophilus (Bacid, Amparo-Bid) 1 tab DAILY PO Last administered on 11/30/16 08:29; Start 11/23/16 at 09:00 Atorvastatin Calcium (Lipitor) 40 mg QHS PO Last administered on 11/30/16 19: 43; Start 11/23/16 at 21:00 Vitamin D (Vitamin D3) 50,000 unit WEEKLY PO ; Start 11/24/16 at 09:00 Donepezil HCl (Aricept) 10 mg QHS PO Last administered on 11/30/16 19:43; Start 11/23/16 at 21:00 Bupropion HCl (Wellbutrin Xl) 150 mg DAILY PO Last administered on 11/25/16 08 :22; Start 11/24/16 at 09:00; Stop 11/25/16 at 17:06; Status DC Mirtazapine (Remeron) 7.5 mg QHS PO Last administered on 11/24/16 19:55; Start 11/23/16 at 21:00; Stop 11/25/16 at 17:08; Status DC Olanzapine (ZyPREXA ZYDIS) 2.5 mg PRN Q2HR PRN PO PSYCHOSIS Last administered on 11/24/16 23:07; Start 11/23/16 at 18:30 Risperidone (RisperDAL) 0.125 mg QHS SL Last administered on 11/24/16 11:35; Start 11/24/16 at 11:00; Stop 11/25/16 at 17:08; Status DC Mirtazapine (Remeron) 15 mg QHS PO Last administered on 11/30/16 19:43; Start 11/25/16 at 21:00 Risperidone (RisperDAL) 0.25 mg QHS SL Last administered on 11/27/16 20:29; Start 11/25/16 at 21:00; Stop 11/28/16 at 18:46; Status DC Trazodone HCl (Desyrel) 50 mg QHS PO Last administered on 11/30/16 19:43; Start 11/25/16 at 21:00 Trazodone HCl (Desyrel) 50 mg PRN QHS PRN PO INSOMNIA Last administered on 11/26 22:40; Start 11/25/16 at 17:15 Risperidone (RisperDAL) 0.375 mg QHS SL Last administered on 11/30/16 19:45; Start 11/28/16 at 21:00 Furosemide (Lasix) 20 mg DAILY PO Last administered on 11/30/16 08:31; Start 11/30/16 at 09:00 Potassium Chloride (Klor-Con) 20 meq DAILYWBKFT PO Last administered on 08:31; Start 11/30/16 at 08:00 Potassium Chloride (Klor-Con) 20 meq 1X ONCE PO Last administered on 12:20; Start 11/29/16 at 12:30; Stop 11/29/16 at 12:31; Status DC Escitalopram Oxalate (Lexapro) 5 mg QHS PO Last administered on 11/30/16 19:45 ; Start 11/30/16 at 21:00 Active Scripts Active Reported Vitamin D3 (Cholecalciferol (Vitamin D3)) 1,000 Unit Tablet 2,000 Unit PO DAILY Santyl (Collagenase Clostridium Hist.) 30 Gm Oint...g. 30 Gm TP DAILY Crestor (Rosuvastatin Calcium) 10 Mg Tablet 10 Mg PO DAILY Probiotic (Lactobacillus Combo No.10) 1 Each Capsule 1 Each PO DAILY Losartan Potassium 50 Mg Tablet 50 Mg PO DAILY Lorazepam 0.5 Mg Tablet 0.25 Mg PO DAILY Lasix (Furosemide) 40 Mg Tablet 40 Mg PO DAILY Donepezil Hcl 5 Mg Tablet 5 Mg PO HS Diltiazem 24HR Cd (Diltiazem Hcl) 120 Mg Cap.er.24h 240 Mg PO Aspir-Low (Aspirin) 81 Mg Tablet. 81 Mg PO Tylenol (Acetaminophen) 325 Mg Tablet 650 Mg PO Seroquel (Quetiapine Fumarate) 25 Mg Tablet 25 Tab PO NOON SAVAGE CASTILLO MD Nov 30, 2016 19:49
--- NOTE | 2016-11-30 21:48 | PN ---
DATE: 11/29/2016 This is a late entry for 11/29/2016, covers elements not covered in my initial note of 11/29/2016. SUBJECTIVE: The patient was seen in the evening of 11/29/2016. Per nursing report, she has been much more cooperative, had a shower, was not combative. Compliant with medications. REVIEW OF SYSTEMS: Ambulation impaired, in a wheelchair. No CV, , pulmonary, eye, ENT system symptoms on review. MENTAL STATUS EXAM: Oriented to herself and situation. Speech has some latency, fluent volume, coherent, abstraction fair, computation impaired, language function intact. Attention span improved. Mood and affect is improved. LABORATORY DATA: Reviewed. IMPRESSION: Psychotic disorder, unspecified; major depressive disorder with psychotic features in partial remission; anxiety disorder, unspecified. PLAN: Continue Risperdal 0.375 mg at bedtime, Aricept, Remeron, Zyprexa p.r.n., trazodone. We will also go ahead and start Lexapro 5 mg a day. SAVAGE CASTILLO MD DR: DION/soto JOB#: [id number] / [id number]
[2016-12-01] MEDS ORDERED: ATOR40TA59 PO (03:48)
[2016-12-01] MEDS ORDERED: CHOL500016 PO (03:49)
[2016-12-01] MEDS ORDERED: LEXAPRO5 MG PO (04:08)
[2016-12-01] MEDS ORDERED: METH29OI TP (04:10)
[2016-12-01] MEDS ORDERED: MAGN2400 PO (04:10)
[2016-12-01] MEDS ORDERED: MAG30ORA2 PO (04:10)
[2016-12-01] MEDS ORDERED: MIRT15TA3 PO (04:11)
[2016-12-01] MEDS ORDERED: OLAN2.5T3 PO (04:12)
[2016-12-01] MEDS ORDERED: POTA20TA82 PO (04:13)
[2016-12-01] MEDS ORDERED: RISP1SOL6 PO (04:14)
[2016-12-01] MEDS ORDERED: TRAZ50TA15 PO ×2 (04:15)
[2016-12-01 05:39] VITALS: BP 128/79
[2016-12-01] MEDS: POTASSIUM CHLORIDE 20 MEQ TABLET.ER. PO SCH ×3 (08:00→12:48)
[2016-12-01] MEDS: CHOLECALCIFEROL (VITAMIN D3) 1,000 UNIT TABLET PO SCH ×3 (09:00→12:50)
[2016-12-01] MEDS: FUROSEMIDE 20 MG TABLET PO SCH ×3 (09:00→12:50)
[2016-12-01] MEDS: ESCITALOPRAM 10 MG TABLET. PO SCH ×3 (09:00→12:49)
[2016-12-01] MEDS: LACTOBACILLUS ACIDOPH & BULGAR 1 TABLET. PO SCH ×3 (09:00→12:49)
[2016-12-01] MEDS: CHOLECALCIFEROL (VITAMIN D3) 50,000 UNIT CAPSULE PO SCH (09:00)
[2016-12-01] MEDS: ASPIRIN ENTERIC COATED 81 MG TABLET.DR. PO SCH ×3 (09:00→12:49)
[2016-12-01] MEDS: LOSARTAN 50 MG TABLET. PO SCH ×3 (09:00→12:50)
[2016-12-01 09:21] LABS: BILIRUBIN,URINE NEG (NEG); CLARITY,URINE HAZY; COLOR,URINE AMBER; GLUCOSE,URINE NEG (NEG); NITRITE,URINE NEG (NEG); UROBILINOGEN,URINE 0.2 mg/dL (0.2 mg/dL)
[2016-12-01 09:22] LABS: BACTERIA,URINE 0 /HPF (0-FEW); RBC,URINE OCC /HPF (0-2); SQUAMOUS EPITHELIAL CELL,UR FEW /LPF; WBC,URINE OCC /HPF (0-4)
[2016-12-01] MEDS: risperiDONE ORAL 1 MG/ML 30ml BOTTLE. SL SCH (11:48)
[2016-12-01 15:55] VITALS: BP 115/71
--- NOTE | 2016-12-01 19:45 | PDOC ---
Exam Andrez Demential Exam: Andrez Note: Please also refer to the separate dictated note~for this date of service dictated separately.~Patient seen individually. Discussed the patient with Nursing staff reviewed the chart.~Reviewed interim history and current functioning. Reviewed vital signs,~Labs/ Radiology~and current medications noted below. Continue current treatment with the changes noted in the dictated addendum note Assessment: Vital Signs: Vital Signs Date Time Temp Pulse Resp B/P (MAP) Pulse Ox O2 Delivery O2 Flow Rate FiO2 12/01/16 15:55 97.2 78 16 115/71 (86) 95 Room Air I&O Intake and Output 12/01/16 07:00 Intake Total 720 ml Balance 720 ml Intake Oral 720 ml Labs: Laboratory Tests Test 12/01/16 09:05 Urine Collection Type Unknown Urine Color Allison Urine Clarity Hazy Urine pH 5.0 Urine Specific [place] 1.025 Urine Protein Neg (NEG-TRACE) Urine Glucose (UA) Neg mg/dL (NEG) Urine Ketones (Stick) Neg mg/dL (NEG) Urine Blood Neg (NEG) Urine Nitrite Neg (NEG) Urine Bilirubin Neg (NEG) Urine Urobilinogen Dipstick 0.2 mg/dL (0.2 mg/dL) Urine Leukocyte Esterase Trace (NEG) Urine RBC Occ /HPF (0-2) Urine WBC Occ /HPF (0-4) Urine Squamous Epithelial Cells Few /LPF Urine Bacteria 0 /HPF (0-FEW) Urine Mucus Slight /LPF Current Medications: Meds: Current Medications Donepezil HCl (Aricept) 5 mg HS PO Last administered on 11/22/16 20:39; Start 11/22/16 at 21:00; Stop 11/23/16 at 16:37; Status DC Lorazepam (Ativan) 0.25 mg DAILY PO Last administered on 11/28/16 09:19; Start 11/23/16 at 09:00; Stop 11/28/16 at 18:46; Status DC Quetiapine Fumarate (SEROquel) 25 mg NOON PO Last administered on 11/24/16 11: 34; Start 11/23/16 at 12:00; Stop 11/25/16 at 17:06; Status DC Acetaminophen (Tylenol) 650 mg PRN Q6HRS PRN PO PAIN / TEMP; Start 11/22/16 at 14:15; Stop 11/23/16 at 12:34; Status DC Multi-Ingredient Ointment (Analgesic [place]) 1 vicki PRN QID PRN TP MUSCLE PAIN; Start 11/22/16 at 14:15 Al Hydroxide/Mg Hydroxide (Mylanta Plus Xs) 15 ml PRN AFTMEALHC PRN PO DYSPEPSIA; Start 11/22/16 at 14:15 Magnesium Hydroxide (Milk Of Magnesia) 2,400 mg PRN QHS PRN PO CONSTIPATION; Start 11/22/16 at 14:15 Acetaminophen (Tylenol) 650 mg PRN Q4HRS PO Last administered on 11/27/16 20: 29; Start 11/23/16 at 07:15 Aspirin (Aspirin Enteric Coated) 81 mg DAILY PO Last administered on 11/30/16 08:29; Start 11/23/16 at 09:00 Vitamin D (Vitamin D3) 2,000 unit DAILY PO Last administered on 11/30/16 08:30 ; Start 11/23/16 at 09:00 Diltiazem HCl (Cardizem 24hr Cd) 240 mg DAILY PO Last administered on 09:00; Start 11/23/16 at 09:00 Furosemide (Lasix) 40 mg DAILY PO Last administered on 11/29/16 09:46; Start 11/23/16 at 09:00; Stop 11/29/16 at 11:53; Status DC Losartan Potassium (Cozaar) 50 mg DAILY PO Last administered on 11/30/16 08:29 ; Start 11/23/16 at 09:00 Lactobacillus Acidophilus (Bacid, Amparo-Bid) 1 tab DAILY PO Last administered on 11/30/16 08:29; Start 11/23/16 at 09:00 Atorvastatin Calcium (Lipitor) 40 mg QHS PO Last administered on 11/29/16 19: 46; Start 11/23/16 at 21:00 Vitamin D (Vitamin D3) 50,000 unit WEEKLY PO ; Start 11/24/16 at 09:00 Donepezil HCl (Aricept) 10 mg QHS PO Last administered on 11/29/16 19:46; Start 11/23/16 at 21:00 Bupropion HCl (Wellbutrin Xl) 150 mg DAILY PO Last administered on 11/25/16 08 :22; Start 11/24/16 at 09:00; Stop 11/25/16 at 17:06; Status DC Mirtazapine (Remeron) 7.5 mg QHS PO Last administered on 11/24/16 19:55; Start 11/23/16 at 21:00; Stop 11/25/16 at 17:08; Status DC Olanzapine (ZyPREXA ZYDIS) 2.5 mg PRN Q2HR PRN PO PSYCHOSIS Last administered on 11/24/16 23:07; Start 11/23/16 at 18:30 Risperidone (RisperDAL) 0.125 mg QHS SL Last administered on 11/24/16 11:35; Start 11/24/16 at 11:00; Stop 11/25/16 at 17:08; Status DC Mirtazapine (Remeron) 15 mg QHS PO Last administered on 11/29/16 19:46; Start 11/25/16 at 21:00; Stop 12/01/16 at 18:32; Status DC Risperidone (RisperDAL) 0.25 mg QHS SL Last administered on 11/27/16 20:29; Start 11/25/16 at 21:00; Stop 11/28/16 at 18:46; Status DC Trazodone HCl (Desyrel) 50 mg QHS PO Last administered on 11/29/16 19:46; Start 11/25/16 at 21:00 Trazodone HCl (Desyrel) 50 mg PRN QHS PRN PO INSOMNIA Last administered on 11/26 22:40; Start 11/25/16 at 17:15 Risperidone (RisperDAL) 0.375 mg QHS SL Last administered on 12/01/16 11:48; Start 11/28/16 at 21:00 Furosemide (Lasix) 20 mg DAILY PO Last administered on 11/30/16 08:31; Start 11/30/16 at 09:00 Potassium Chloride (Klor-Con) 20 meq DAILYWBKFT PO Last administered on 08:00; Start 11/30/16 at 08:00 Potassium Chloride (Klor-Con) 20 meq 1X ONCE PO Last administered on 12:20; Start 11/29/16 at 12:30; Stop 11/29/16 at 12:31; Status DC Escitalopram Oxalate (Lexapro) 5 mg QHS PO ; Start 11/30/16 at 21:00; Stop 12/01 at 07:17; Status DC Escitalopram Oxalate (Lexapro) 5 mg DAILY PO Last administered on 12/01/16t 09: 00; Start 12/01/16 at 09:00 Melatonin 3 mg HS PO ; Start 12/01/16 at 21:00 Mirtazapine (Remeron [place]-Tab) 15 mg QHS PO ; Start 12/01/16 at 21:00 Active Scripts Active Reported Trazodone Hcl 50 Mg Tablet 50 Mg PO PRN QHS PRN Trazodone Hcl 50 Mg Tablet 50 Mg PO QHS Risperdal (Risperidone) 1 Mg/1 Ml Solution 0.375 Mg PO QHS Potassium Chloride 20 Meq Tablet.er 20 Meq PO DAILYWBKFT Zyprexa (Olanzapine) 2.5 Mg Tablet 2.5 Mg PO PRN Q2HR PRN Mirtazapine 15 Mg Tablet 15 Mg PO QHS Analgesic [place] (Methyl Salicylate/Menthol) 28 Gm Oint...g. 1 Gm TP PRN QID PRN Milk Of Magnesia (Magnesium Hydroxide) 2,400 Mg/10 Ml Oral.susp 2,400 Mg PO PRN QHS PRN Mag-Al Plus Xs Suspension (Mag Hydrox/Al Hydrox/Simeth) 30 Ml Oral.susp 15 Ml PO PRN AFTMEALHC PRN Lexapro (Escitalopram Oxalate) 5 Mg Tablet 5 Mg PO QHS Vitamin D3 (Cholecalciferol (Vitamin D3)) 5,000 Unit Tablet 5,000 Unit PO WEEKLY Atorvastatin Calcium 40 Mg Tablet 40 Mg PO QHS Vitamin D3 (Cholecalciferol (Vitamin D3)) 1,000 Unit Tablet 2,000 Unit PO DAILY Santyl (Collagenase Clostridium Hist.) 30 Gm Oint...g. 30 Gm TP DAILY Crestor (Rosuvastatin Calcium) 10 Mg Tablet 10 Mg PO DAILY Probiotic (Lactobacillus Combo No.10) 1 Each Capsule 1 Each PO DAILY Losartan Potassium 50 Mg Tablet 50 Mg PO DAILY Lorazepam 0.5 Mg Tablet 0.25 Mg PO DAILY Lasix (Furosemide) 40 Mg Tablet 40 Mg PO DAILY Donepezil Hcl 5 Mg Tablet 5 Mg PO HS Diltiazem 24HR Cd (Diltiazem Hcl) 120 Mg Cap.er.24h 240 Mg PO Aspir-Low (Aspirin) 81 Mg Tablet.dr 81 Mg PO Tylenol (Acetaminophen) 325 Mg Tablet 650 Mg PO Seroquel (Quetiapine Fumarate) 25 Mg Tablet 25 Tab PO NOON SAVAGE CASTILLO MD Dec 01, 2016 19:45
[2016-12-01] MEDS: ATORVASTATIN CALCIUM 20 MG TABLET PO SCH (19:53)
[2016-12-01] MEDS: DONEPEZIL HCL 10 MG TABLET PO SCH (19:53)
[2016-12-01] MEDS: traZODone 50 MG TABLET. PO SCH (19:53)
[2016-12-01] MEDS: MELATONIN 3 MG TABLET PO SCH (19:55)
[2016-12-01] MEDS: MIRTAZAPINE 15 MG TAB.RAPDIS PO SCH (19:55)
--- NOTE | 2016-12-01 22:59 | PN ---
DATE: 11/30/2016 This is a late entry for 11/30/2016 and covers elements not covered in my initial note. SUBJECTIVE: The patient was seen individually evening of 11/30/2016. Overall, she is doing better. She is more cooperative, less paranoid. Appears somewhat anxious, depressed at times. I sat with her the evening of 11/30/2016. REVIEW OF SYSTEMS: No CV, , pulmonary, eye, ENT system symptoms on review. MENTAL STATUS EXAM: Oriented to herself and situation. Speech has some latency, coherent. Abstraction fair, computation impaired, language function intact, attention span fair. Mood and affect is improved. LABORATORY DATA: Reviewed. IMPRESSION: Major depressive disorder with psychotic features, in partial remission; cognitive disorder, unspecified; impulse control disorder, unspecified; rule out bipolar 1 disorder, unspecified. PLAN: Continue current psychotropic, start Lexapro 5 mg a day. Maintain the rest unchanged as noted in my initial note. MAN Kam CASTILLO MD DR: DION/soto JOB#: [id number] / [id number]
--- NOTE | 2016-12-02 04:00 | PN ---
DATE: 12/01/2016 SUBJECTIVE: This note covers elements not covered in my initial note for date of service 12/01/2016. The patient was staffed at treatment team meeting with the entire team morning of 12/01/2016, and reviewed the patient's history, diagnosis, and progress. The patient had a very good day yesterday, but today has been paranoid, delusional, refusing medications, and believes people are being abused here and killed. UA is being checked for UTI. The patient has been making some grunting noises with her throat, which is something she did when she was psychotic at the time of admission. Then, she did much better. The noise has stopped as well and now they have resurfaced. She has made statements to the nursing staff that she chooses to say things that she decides to say irrespective of how she is feeling. Nevertheless, evening of 12/01/2016, she had to be placed in a separate [place] hallway to reduce stimulation, agitated, paranoid, suspicious of me stating I was colluding with the nursing staff as I met with her. REVIEW OF SYSTEMS: Ambulation impaired with a walker. No CV, , pulmonary, eye, or ENT system symptoms on review. MENTAL STATUS EXAM: Oriented to herself and situation. Speech is coherent and has some latency. Abstraction fair, computation impaired, language function intact and attention span short. Mood and affect remain somewhat labile. LABORATORY DATA: Reviewed. IMPRESSION: Psychotic disorder, unspecified; major depressive disorder with psychotic features; rule out bipolar 1 mixed with psychotic features; cognitive disorder, unspecified and noncompliance with medications. PLAN: Change the Risperdal to oral liquid 0.375 mg any time of the day she takes it. Change Remeron to sublingual 15 mg at bedtime, Zyprexa p.r.n., Aricept 10 mg a day, trazodone 50 at bedtime and plus p.r.n., and Lexapro 5 mg a day for now. MAN Kam CASTILLO MD DR: DION/soto JOB#: [id number] / [id number]
[2016-12-02 06:05] VITALS: BP 137/74
[2016-12-02] MEDS: POTASSIUM CHLORIDE 20 MEQ TABLET.ER. PO SCH (08:27)
[2016-12-02] MEDS ORDERED: ESCITALOPRAM 10 MG TABLET. PO ONE (08:30)
[2016-12-02] MEDS ORDERED: CHOLECALCIFEROL (VITAMIN D3) 1,000 UNIT TABLET PO ONE (08:30)
[2016-12-02] MEDS ORDERED: FUROSEMIDE 20 MG TABLET PO ONE (08:30)
[2016-12-02] MEDS ORDERED: LACTOBACILLUS ACIDOPH & BULGAR 1 TABLET. PO ONE (09:00)
[2016-12-02] MEDS ORDERED: LOSARTAN 50 MG TABLET. PO ONE (09:00)
[2016-12-02] MEDS ORDERED: ASPIRIN ENTERIC COATED 81 MG TABLET.DR. PO ONE (09:00)
[2016-12-02 16:01] VITALS: BP 101/94
[2016-12-02] MEDS: DONEPEZIL HCL 10 MG TABLET PO SCH (19:23)
[2016-12-02] MEDS: ATORVASTATIN CALCIUM 20 MG TABLET PO SCH (19:23)
[2016-12-02] MEDS: traZODone 50 MG TABLET. PO SCH (19:23)
[2016-12-02] MEDS: MELATONIN 3 MG TABLET PO SCH (19:23)
[2016-12-02] MEDS: MIRTAZAPINE 15 MG TAB.RAPDIS PO SCH (19:23)
[2016-12-02] MEDS: risperiDONE ORAL 1 MG/ML 30ml BOTTLE. SL SCH (19:24)
--- NOTE | 2016-12-02 21:26 | PDOC ---
Exam Andrez Demential Exam: Andrez Note: Please also refer to the separate dictated note~for this date of service dictated separately.~Patient seen individually. Discussed the patient with Nursing staff reviewed the chart.~Reviewed interim history and current functioning. Reviewed vital signs,~Labs/ Radiology~and current medications noted below. Continue current treatment with the changes noted in the dictated addendum note Assessment: Vital Signs: Vital Signs Date Time Temp Pulse Resp B/P (MAP) Pulse Ox O2 Delivery O2 Flow Rate FiO2 12/02/16 16:01 98.1 73 16 101/94 (96) 96 Room Air I&O Intake and Output 12/02/16 07:00 Intake Total 1080 ml Balance 1080 ml Intake Oral 1080 ml # Bowel Movements 1 Current Medications: Meds: Current Medications Donepezil HCl (Aricept) 5 mg HS PO Last administered on 11/22/16 20:39; Start 11/22/16 at 21:00; Stop 11/23/16 at 16:37; Status DC Lorazepam (Ativan) 0.25 mg DAILY PO Last administered on 11/28/16 09:19; Start 11/23/16 at 09:00; Stop 11/28/16 at 18:46; Status DC Quetiapine Fumarate (SEROquel) 25 mg NOON PO Last administered on 11/24/16 11: 34; Start 11/23/16 at 12:00; Stop 11/25/16 at 17:06; Status DC Acetaminophen (Tylenol) 650 mg PRN Q6HRS PRN PO PAIN / TEMP; Start 11/22/16 at 14:15; Stop 11/23/16 at 12:34; Status DC Multi-Ingredient Ointment (Analgesic [place]) 1 vicki PRN QID PRN TP MUSCLE PAIN; Start 11/22/16 at 14:15 Al Hydroxide/Mg Hydroxide (Mylanta Plus Xs) 15 ml PRN AFTMEALHC PRN PO DYSPEPSIA; Start 11/22/16 at 14:15 Magnesium Hydroxide (Milk Of Magnesia) 2,400 mg PRN QHS PRN PO CONSTIPATION; Start 11/22/16 at 14:15 Acetaminophen (Tylenol) 650 mg PRN Q4HRS PO Last administered on 11/27/16 20: 29; Start 11/23/16 at 07:15 Aspirin (Aspirin Enteric Coated) 81 mg DAILY PO Last administered on 11/30/16 08:29; Start 11/23/16 at 09:00 Vitamin D (Vitamin D3) 2,000 unit DAILY PO Last administered on 11/30/16 08:30 ; Start 11/23/16 at 09:00 Diltiazem HCl (Cardizem 24hr Cd) 240 mg DAILY PO Last administered on 09:00; Start 11/23/16 at 09:00 Furosemide (Lasix) 40 mg DAILY PO Last administered on 11/29/16 09:46; Start 11/23/16 at 09:00; Stop 11/29/16 at 11:53; Status DC Losartan Potassium (Cozaar) 50 mg DAILY PO Last administered on 11/30/16 08:29 ; Start 11/23/16 at 09:00 Lactobacillus Acidophilus (Bacid, Amparo-Bid) 1 tab DAILY PO Last administered on 11/30/16 08:29; Start 11/23/16 at 09:00 Atorvastatin Calcium (Lipitor) 40 mg QHS PO Last administered on 12/02/16 19: 23; Start 11/23/16 at 21:00 Vitamin D (Vitamin D3) 50,000 unit WEEKLY PO ; Start 11/24/16 at 09:00 Donepezil HCl (Aricept) 10 mg QHS PO Last administered on 12/02/16 19:23; Start 11/23/16 at 21:00 Bupropion HCl (Wellbutrin Xl) 150 mg DAILY PO Last administered on 11/25/16 08 :22; Start 11/24/16 at 09:00; Stop 11/25/16 at 17:06; Status DC Mirtazapine (Remeron) 7.5 mg QHS PO Last administered on 11/24/16 19:55; Start 11/23/16 at 21:00; Stop 11/25/16 at 17:08; Status DC Olanzapine (ZyPREXA ZYDIS) 2.5 mg PRN Q2HR PRN PO PSYCHOSIS Last administered on 11/24/16 23:07; Start 11/23/16 at 18:30 Risperidone (RisperDAL) 0.125 mg QHS SL Last administered on 11/24/16 11:35; Start 11/24/16 at 11:00; Stop 11/25/16 at 17:08; Status DC Mirtazapine (Remeron) 15 mg QHS PO Last administered on 11/29/16 19:46; Start 11/25/16 at 21:00; Stop 12/01/16 at 18:32; Status DC Risperidone (RisperDAL) 0.25 mg QHS SL Last administered on 11/27/16 20:29; Start 11/25/16 at 21:00; Stop 11/28/16 at 18:46; Status DC Trazodone HCl (Desyrel) 50 mg QHS PO Last administered on 12/02/16 19:23; Start 11/25/16 at 21:00 Trazodone HCl (Desyrel) 50 mg PRN QHS PRN PO INSOMNIA Last administered on 11/26 22:40; Start 11/25/16 at 17:15 Risperidone (RisperDAL) 0.375 mg QHS SL Last administered on 12/02/16 19:24; Start 11/28/16 at 21:00 Furosemide (Lasix) 20 mg DAILY PO Last administered on 11/30/16 08:31; Start 11/30/16 at 09:00 Potassium Chloride (Klor-Con) 20 meq DAILYWBKFT PO Last administered on 08:27; Start 11/30/16 at 08:00 Potassium Chloride (Klor-Con) 20 meq 1X ONCE PO Last administered on 12:20; Start 11/29/16 at 12:30; Stop 11/29/16 at 12:31; Status DC Escitalopram Oxalate (Lexapro) 5 mg QHS PO ; Start 11/30/16 at 21:00; Stop 12/01 at 07:17; Status DC Escitalopram Oxalate (Lexapro) 5 mg DAILY PO Last administered on 12/01/16 09: 00; Start 12/01/16 at 09:00 Melatonin 3 mg HS PO Last administered on 12/02/16 19:23; Start 12/01/16 at 21 :00 Mirtazapine (Remeron [place]-Tab) 15 mg QHS PO Last administered on 12/02/16 19:23 ; Start 12/01/16 at 21:00 Aspirin (Aspirin Enteric Coated) 81 mg 1X ONCE PO Last administered on 08:29; Start 12/02/16 at 09:00; Stop 12/02/16 at 09:01; Status DC Vitamin D (Vitamin D3) 2,000 unit 1X ONCE PO Last administered on 12/02/16 08 :26; Start 12/02/16 at 08:30; Stop 12/02/16 at 08:31; Status DC Diltiazem HCl (Cardizem 24hr Cd) 240 mg 1X ONCE PO Last administered on 08:29; Start 12/02/16 at 08:30; Stop 12/02/16 at 08:31; Status DC Escitalopram Oxalate (Lexapro) 5 mg 1X ONCE PO Last administered on 12/02/16 08:28; Start 12/02/16 at 08:30; Stop 12/02/16 at 08:31; Status DC Furosemide (Lasix) 20 mg 1X ONCE PO Last administered on 12/02/16 08:29; Start 12/02/16 at 08:30; Stop 12/02/16 at 08:31; Status DC Lactobacillus Acidophilus (Bacid, Amparo-Bid) 1 tab 1X ONCE PO Last administered on 12/02/16 08:28; Start 12/02/16 at 09:00; Stop 12/02/16 at 09:01 ; Status DC Losartan Potassium (Cozaar) 50 mg 1X ONCE PO Last administered on 12/02/16 08 :28; Start 12/02/16 at 09:00; Stop 12/02/16 at 09:01; Status DC Active Scripts Active Reported Trazodone Hcl 50 Mg Tablet 50 Mg PO PRN QHS PRN Trazodone Hcl 50 Mg Tablet 50 Mg PO QHS Risperdal (Risperidone) 1 Mg/1 Ml Solution 0.375 Mg PO QHS Potassium Chloride 20 Meq Tablet.er 20 Meq PO DAILYWBKFT Zyprexa (Olanzapine) 2.5 Mg Tablet 2.5 Mg PO PRN Q2HR PRN Mirtazapine 15 Mg Tablet 15 Mg PO QHS Analgesic [place] (Methyl Salicylate/Menthol) 28 Gm Oint...g. 1 Gm TP PRN QID PRN Milk Of Magnesia (Magnesium Hydroxide) 2,400 Mg/10 Ml Oral.susp 2,400 Mg PO PRN QHS PRN Mag-Al Plus Xs Suspension (Mag Hydrox/Al Hydrox/Simeth) 30 Ml Oral.susp 15 Ml PO PRN AFTMEALHC PRN Lexapro (Escitalopram Oxalate) 5 Mg Tablet 5 Mg PO QHS Vitamin D3 (Cholecalciferol (Vitamin D3)) 5,000 Unit Tablet 5,000 Unit PO WEEKLY Atorvastatin Calcium 40 Mg Tablet 40 Mg PO QHS Vitamin D3 (Cholecalciferol (Vitamin D3)) 1,000 Unit Tablet 2,000 Unit PO DAILY Santyl (Collagenase Clostridium Hist.) 30 Gm Oint...g. 30 Gm TP DAILY Crestor (Rosuvastatin Calcium) 10 Mg Tablet 10 Mg PO DAILY Probiotic (Lactobacillus Combo No.10) 1 Each Capsule 1 Each PO DAILY Losartan Potassium 50 Mg Tablet 50 Mg PO DAILY Lorazepam 0.5 Mg Tablet 0.25 Mg PO DAILY Lasix (Furosemide) 40 Mg Tablet 40 Mg PO DAILY Donepezil Hcl 5 Mg Tablet 5 Mg PO HS Diltiazem 24HR Cd (Diltiazem Hcl) 120 Mg Cap.er.24h 240 Mg PO Aspir-Low (Aspirin) 81 Mg Tablet. 81 Mg PO Tylenol (Acetaminophen) 325 Mg Tablet 650 Mg PO Seroquel (Quetiapine Fumarate) 25 Mg Tablet 25 Tab PO SAVAGE DUMONT MD Dec 02, 2016 21:26
[2016-12-03 05:53] VITALS: BP 107/63
[2016-12-03 06:36] LABS: BASO # 0.1 x10^3/uL (0.0-0.2); BASO % 1 % (0-3); EOS # 0.2 x10^3/uL (0.0-0.7); EOS % 2 % (0-3); HEMATOCRIT 36.2 % (36.0-47.0); HEMOGLOBIN 12.2 g/dL (12.0-15.5); LYMPH # 1.7 x10^3/uL (1.0-4.8); LYMPH % 20 % (24-48); MEAN CORPUSCULAR HEMOGLOBIN 31 pg (25-35); MEAN CORPUSCULAR HGB CONC 34 g/dL (31-37); MEAN CORPUSCULAR VOLUME 91 fL (79-100); MONO # 0.8 x10^3/uL (0.0-1.1); MONO % 10 % (0-9); NEUT # 5.5 x10^3uL (1.8-7.7); NEUT % 66 % (31-73); PLATELET COUNT 169 x10^3/uL (140-400); RED CELL DISTRIBUTION WIDTH 13.6 % (11.5-14.5); WHITE BLOOD COUNT 8.3 x10^3/uL (4.0-11.0)
[2016-12-03 06:48] LABS: ALBUMIN 2.9 g/dL (3.4-5.0); ALBUMIN/GLOBULIN RATIO 0.9 (1.0-1.7); CALCIUM 9.4 mg/dL (8.5-10.1); CREATININE 0.8 mg/dL (0.6-1.0); GFR 67.8; MAGNESIUM 2.2 mg/dL (1.8-2.4); POTASSIUM 4.1 mmol/L (3.5-5.1); TOTAL BILIRUBIN 0.6 mg/dL (0.2-1.0); TOTAL PROTEIN 6.1 g/dL (6.4-8.2)
[2016-12-03] MEDS: ASPIRIN ENTERIC COATED 81 MG TABLET.DR. PO SCH (09:04)
[2016-12-03] MEDS: LACTOBACILLUS ACIDOPH & BULGAR 1 TABLET. PO SCH (09:04)
[2016-12-03] MEDS: ESCITALOPRAM 10 MG TABLET. PO SCH (09:11)
[2016-12-03] MEDS: FUROSEMIDE 20 MG TABLET PO SCH (09:11)
[2016-12-03] MEDS: CHOLECALCIFEROL (VITAMIN D3) 1,000 UNIT TABLET PO SCH (09:11)
[2016-12-03] MEDS: LOSARTAN 50 MG TABLET. PO SCH (09:11)
--- NOTE | 2016-12-03 12:14 | PN ---
DATE: 12/02/2016 This is a late entry for 12/02/2016 and covers elements not covered in my initial note. SUBJECTIVE: The patient was seen individually evening of 12/02/2016 Per nursing report, the patient slept 7-1/4 hours the previous evening, has done better as compared to the day before, much less psychotic, pleasant and cooperative with medications and her appetite and intake has been adequate. REVIEW OF SYSTEMS: No CV, , pulmonary, eye, ENT system symptoms on review, pleasant, smiling, verbal as I met with her. MENTAL STATUS EXAM: Oriented to herself and situation. Speech is coherent, abstraction fair, computation impaired, language function intact, attention span short. Mood and affect improved. LABORATORY DATA: Reviewed. IMPRESSION: Unchanged from initial note. PLAN: Continue current psychotropics. Adjust further as clinically indicated. We will assess whether some of the patient's presentation is part of her personality factors given the extent to which her mood, psychosis and cooperativeness, compliance with treatment varies from day to day, but we will monitor and see how she does over the next day or two. MAN Kam CASTILLO MD DR: DION/soto JOB#: [id number] / [id number]
[2016-12-03 15:47] VITALS: BP 103/65
[2016-12-03] MEDS: MELATONIN 3 MG TABLET PO SCH (19:19)
[2016-12-03] MEDS: DONEPEZIL HCL 10 MG TABLET PO SCH (19:19)
[2016-12-03] MEDS: ATORVASTATIN CALCIUM 20 MG TABLET PO SCH (19:19)
[2016-12-03] MEDS: traZODone 50 MG TABLET. PO SCH (19:19)
[2016-12-03] MEDS: MIRTAZAPINE 15 MG TAB.RAPDIS PO SCH (19:19)
[2016-12-03] MEDS: risperiDONE ORAL 1 MG/ML 30ml BOTTLE. SL SCH (19:20)
--- NOTE | 2016-12-03 21:32 | PDOC ---
Exam Andrez Demential Exam: Andrez Note: Please also refer to the separate dictated note~for this date of service dictated separately.~Patient seen individually. Discussed the patient with Nursing staff reviewed the chart.~Reviewed interim history and current functioning. Reviewed vital signs,~Labs/ Radiology~and current medications noted below. Continue current treatment with the changes noted in the dictated addendum note Assessment: Vital Signs: Vital Signs Date Time Temp Pulse Resp B/P (MAP) Pulse Ox O2 Delivery O2 Flow Rate FiO2 12/03/16 15:47 98.8 72 21 103/65 (78) 96 12/02/16 16:01 Room Air I&O Intake and Output 12/03/16 07:00 Intake Total 1140 ml Balance 1140 ml Intake Oral 1140 ml Labs: Laboratory Tests Test 12/03/16 06:13 White Blood Count 8.3 x10^3/uL (4.0-11.0) Red Blood Count 4.00 x10^6/uL (3.50-5.40) Hemoglobin 12.2 g/dL (12.0-15.5) Hematocrit 36.2 % (36.0-47.0) Mean Corpuscular Volume 91 fL (79-100) Mean Corpuscular Hemoglobin 31 pg (25-35) Mean Corpuscular Hemoglobin Concent 34 g/dL (31-37) Red Cell Distribution Width 13.6 % (11.5-14.5) Platelet Count 169 x10^3/uL (140-400) Neutrophils (%) (Auto) 66 % (31-73) Lymphocytes (%) (Auto) 20 % (24-48) L Monocytes (%) (Auto) 10 % (0-9) H Eosinophils (%) (Auto) 2 % (0-3) Basophils (%) (Auto) 1 % (0-3) Neutrophils # (Auto) 5.5 x10^3uL (1.8-7.7) Lymphocytes # (Auto) 1.7 x10^3/uL (1.0-4.8) Monocytes # (Auto) 0.8 x10^3/uL (0.0-1.1) Eosinophils # (Auto) 0.2 x10^3/uL (0.0-0.7) Basophils # (Auto) 0.1 x10^3/uL (0.0-0.2) Sodium Level 140 mmol/L (136-145) Potassium Level 4.1 mmol/L (3.5-5.1) Chloride Level 104 mmol/L (98-107) Carbon Dioxide Level 32 mmol/L (21-32) Anion Gap 4 (6-14) L Blood Urea Nitrogen 24 mg/dL (7-20) H Creatinine 0.8 mg/dL (0.6-1.0) Estimated GFR (Cockcroft-Gault) 67.8 BUN/Creatinine Ratio 30 (6-20) H Glucose Level 97 mg/dL (70-99) Calcium Level 9.4 mg/dL (8.5-10.1) Magnesium Level 2.2 mg/dL (1.8-2.4) Total Bilirubin 0.6 mg/dL (0.2-1.0) Aspartate Amino Transferase (AST) 19 U/L (15-37) Alanine Aminotransferase (ALT) 18 U/L (14-59) Alkaline Phosphatase 94 U/L (46-116) Total Protein 6.1 g/dL (6.4-8.2) L Albumin 2.9 g/dL (3.4-5.0) L Albumin/Globulin Ratio 0.9 (1.0-1.7) L Current Medications: Meds: Current Medications Donepezil HCl (Aricept) 5 mg HS PO Last administered on 11/22/16 20:39; Start 11/22/16 at 21:00; Stop 11/23/16 at 16:37; Status DC Lorazepam (Ativan) 0.25 mg DAILY PO Last administered on 11/28/16 09:19; Start 11/23/16 at 09:00; Stop 11/28/16 at 18:46; Status DC Quetiapine Fumarate (SEROquel) 25 mg NOON PO Last administered on 11/24/16 11: 34; Start 11/23/16 at 12:00; Stop 11/25/16 at 17:06; Status DC Acetaminophen (Tylenol) 650 mg PRN Q6HRS PRN PO PAIN / TEMP; Start 11/22/16 at 14:15; Stop 11/23/16 at 12:34; Status DC Multi-Ingredient Ointment (Analgesic [place]) 1 vicki PRN QID PRN TP MUSCLE PAIN; Start 11/22/16 at 14:15 Al Hydroxide/Mg Hydroxide (Mylanta Plus Xs) 15 ml PRN AFTMEALHC PRN PO DYSPEPSIA; Start 11/22/16 at 14:15 Magnesium Hydroxide (Milk Of Magnesia) 2,400 mg PRN QHS PRN PO CONSTIPATION; Start 11/22/16 at 14:15 Acetaminophen (Tylenol) 650 mg PRN Q4HRS PO Last administered on 11/27/16 20: 29; Start 11/23/16 at 07:15 Aspirin (Aspirin Enteric Coated) 81 mg DAILY PO Last administered on 12/03/16 09:04; Start 11/23/16 at 09:00 Vitamin D (Vitamin D3) 2,000 unit DAILY PO Last administered on 12/03/16 09:11 ; Start 11/23/16 at 09:00 Diltiazem HCl (Cardizem 24hr Cd) 240 mg DAILY PO Last administered on 09:07; Start 11/23/16 at 09:00 Furosemide (Lasix) 40 mg DAILY PO Last administered on 11/29/16 09:46; Start 11/23/16 at 09:00; Stop 11/29/16 at 11:53; Status DC Losartan Potassium (Cozaar) 50 mg DAILY PO Last administered on 12/03/16 09:11 ; Start 11/23/16 at 09:00 Lactobacillus Acidophilus (Bacid, Amparo-Bid) 1 tab DAILY PO Last administered on 12/03/16 09:04; Start 11/23/16 at 09:00 Atorvastatin Calcium (Lipitor) 40 mg QHS PO Last administered on 12/03/16 19: 19; Start 11/23/16 at 21:00 Vitamin D (Vitamin D3) 50,000 unit WEEKLY PO ; Start 11/24/16 at 09:00 Donepezil HCl (Aricept) 10 mg QHS PO Last administered on 12/03/16 19:19; Start 11/23/16 at 21:00 Bupropion HCl (Wellbutrin Xl) 150 mg DAILY PO Last administered on 11/25/16 08 :22; Start 11/24/16 at 09:00; Stop 11/25/16 at 17:06; Status DC Mirtazapine (Remeron) 7.5 mg QHS PO Last administered on 11/24/16 19:55; Start 11/23/16 at 21:00; Stop 11/25/16 at 17:08; Status DC Olanzapine (ZyPREXA ZYDIS) 2.5 mg PRN Q2HR PRN PO PSYCHOSIS Last administered on 11/24/16 23:07; Start 11/23/16 at 18:30 Risperidone (RisperDAL) 0.125 mg QHS SL Last administered on 11/24/16 11:35; Start 11/24/16 at 11:00; Stop 11/25/16 at 17:08; Status DC Mirtazapine (Remeron) 15 mg QHS PO Last administered on 11/29/16 19:46; Start 11/25/16 at 21:00; Stop 12/01/16 at 18:32; Status DC Risperidone (RisperDAL) 0.25 mg QHS SL Last administered on 11/27/16 20:29; Start 11/25/16 at 21:00; Stop 11/28/16 at 18:46; Status DC Trazodone HCl (Desyrel) 50 mg QHS PO Last administered on 12/03/16 19:19; Start 11/25/16 at 21:00 Trazodone HCl (Desyrel) 50 mg PRN QHS PRN PO INSOMNIA Last administered on 11/26 22:40; Start 11/25/16 at 17:15 Risperidone (RisperDAL) 0.375 mg QHS SL Last administered on 12/03/16 19:20; Start 11/28/16 at 21:00 Furosemide (Lasix) 20 mg DAILY PO Last administered on 12/03/16 09:11; Start 11/30/16 at 09:00 Potassium Chloride (Klor-Con) 20 meq DAILYWBKFT PO Last administered on 08:27; Start 11/30/16 at 08:00 Potassium Chloride (Klor-Con) 20 meq 1X ONCE PO Last administered on 12:20; Start 11/29/16 at 12:30; Stop 11/29/16 at 12:31; Status DC Escitalopram Oxalate (Lexapro) 5 mg QHS PO ; Start 11/30/16 at 21:00; Stop 12/01 at 07:17; Status DC Escitalopram Oxalate (Lexapro) 5 mg DAILY PO Last administered on 12/03/16 09: 11; Start 12/01/16 at 09:00 Melatonin 3 mg HS PO Last administered on 12/03/16 19:19; Start 12/01/16 at 21 :00 Mirtazapine (Remeron [place]-Tab) 15 mg QHS PO Last administered on 12/03/16 19:19 ; Start 12/01/16 at 21:00 Aspirin (Aspirin Enteric Coated) 81 mg 1X ONCE PO Last administered on 08:29; Start 12/02/16 at 09:00; Stop 12/02/16 at 09:01; Status DC Vitamin D (Vitamin D3) 2,000 unit 1X ONCE PO Last administered on 12/02/16 08 :26; Start 12/02/16 at 08:30; Stop 12/02/16 at 08:31; Status DC Diltiazem HCl (Cardizem 24hr Cd) 240 mg 1X ONCE PO Last administered on 08:29; Start 12/02/16 at 08:30; Stop 12/02/16 at 08:31; Status DC Escitalopram Oxalate (Lexapro) 5 mg 1X ONCE PO Last administered on 12/02/16 08:28; Start 12/02/16 at 08:30; Stop 12/02/16 at 08:31; Status DC Furosemide (Lasix) 20 mg 1X ONCE PO Last administered on 12/02/16 08:29; Start 12/02/16 at 08:30; Stop 12/02/16 at 08:31; Status DC Lactobacillus Acidophilus (Bacid, Amparo-Bid) 1 tab 1X ONCE PO Last administered on 12/02/16 08:28; Start 12/02/16 at 09:00; Stop 12/02/16 at 09:01 ; Status DC Losartan Potassium (Cozaar) 50 mg 1X ONCE PO Last administered on 12/02/16 08 :28; Start 12/02/16 at 09:00; Stop 12/02/16 at 09:01; Status DC Active Scripts Active Reported Trazodone Hcl 50 Mg Tablet 50 Mg PO PRN QHS PRN Trazodone Hcl 50 Mg Tablet 50 Mg PO QHS Risperdal (Risperidone) 1 Mg/1 Ml Solution 0.375 Mg PO QHS Potassium Chloride 20 Meq Tablet.er 20 Meq PO DAILYWBKFT Zyprexa (Olanzapine) 2.5 Mg Tablet 2.5 Mg PO PRN Q2HR PRN Mirtazapine 15 Mg Tablet 15 Mg PO QHS Analgesic [place] (Methyl Salicylate/Menthol) 28 Gm Oint...g. 1 Gm TP PRN QID PRN Milk Of Magnesia (Magnesium Hydroxide) 2,400 Mg/10 Ml Oral.susp 2,400 Mg PO PRN QHS PRN Mag-Al Plus Xs Suspension (Mag Hydrox/Al Hydrox/Simeth) 30 Ml Oral.susp 15 Ml PO PRN AFTMEALHC PRN Lexapro (Escitalopram Oxalate) 5 Mg Tablet 5 Mg PO QHS Vitamin D3 (Cholecalciferol (Vitamin D3)) 5,000 Unit Tablet 5,000 Unit PO WEEKLY Atorvastatin Calcium 40 Mg Tablet 40 Mg PO QHS Vitamin D3 (Cholecalciferol (Vitamin D3)) 1,000 Unit Tablet 2,000 Unit PO DAILY Santyl (Collagenase Clostridium Hist.) 30 Gm Oint...g. 30 Gm TP DAILY Crestor (Rosuvastatin Calcium) 10 Mg Tablet 10 Mg PO DAILY Probiotic (Lactobacillus Combo No.10) 1 Each Capsule 1 Each PO DAILY Losartan Potassium 50 Mg Tablet 50 Mg PO DAILY Lorazepam 0.5 Mg Tablet 0.25 Mg PO DAILY Lasix (Furosemide) 40 Mg Tablet 40 Mg PO DAILY Donepezil Hcl 5 Mg Tablet 5 Mg PO HS Diltiazem 24HR Cd (Diltiazem Hcl) 120 Mg Cap.er.24h 240 Mg PO Aspir-Low (Aspirin) 81 Mg Tablet.dr 81 Mg PO Tylenol (Acetaminophen) 325 Mg Tablet 650 Mg PO Seroquel (Quetiapine Fumarate) 25 Mg Tablet 25 Tab PO NOON SAVAGE CASTILLO MD Dec 03, 2016 21:32
[2016-12-04 05:45] VITALS: BP 102/45
[2016-12-04] MEDS: LOSARTAN 50 MG TABLET. PO SCH (09:00)
[2016-12-04] MEDS: FUROSEMIDE 20 MG TABLET PO SCH (09:00)
[2016-12-04] MEDS: LACTOBACILLUS ACIDOPH & BULGAR 1 TABLET. PO SCH (09:22)
[2016-12-04] MEDS: POTASSIUM CHLORIDE 20 MEQ TABLET.ER. PO SCH (09:22)
[2016-12-04] MEDS: ASPIRIN ENTERIC COATED 81 MG TABLET.DR. PO SCH (09:22)
[2016-12-04] MEDS: CHOLECALCIFEROL (VITAMIN D3) 1,000 UNIT TABLET PO SCH (09:27)
[2016-12-04 09:29] VITALS: BP 115/43
[2016-12-04 09:41] VITALS: BP 105/50
[2016-12-04] MEDS: ESCITALOPRAM 10 MG TABLET. PO SCH (09:42)
--- NOTE | 2016-12-04 11:38 | PN ---
DATE: 12/03/2016 PSYCHIATRIC PROGRESS NOTE This is a late entry 12/03/2016, covers elements not covered in my initial note. SUBJECTIVE: I met with the patient evening of 12/03/2016. She was resistive to lab draw last evening, but has had a good day more compliant, less labile, less paranoid. REVIEW OF SYSTEMS: No CV, , pulmonary, eye, ENT system symptoms on review. Reliability fair. MENTAL STATUS EXAM: Oriented to herself and situation. Speech is coherent. She is pleasant, smiling as I sat with her. Insight showing improvement. Language function intact, attention span fair. Mood and affect has improved. LABORATORY DATA: Reviewed. IMPRESSION: Unchanged from initial note. PLAN: Continue psychotropics mentioned in my initial note. Adjust as clinically indicated. MAN Kam CASTILLO MD DR: DION/soto JOB#: [id number] / [id number]
[2016-12-04 16:12] VITALS: BP 138/58
--- NOTE | 2016-12-04 19:38 | PDOC ---
Exam Andrez Demential Exam: Andrez Note: Please also refer to the separate dictated note~for this date of service dictated separately.~Patient seen individually. Discussed the patient with Nursing staff reviewed the chart.~Reviewed interim history and current functioning. Reviewed vital signs,~Labs/ Radiology~and current medications noted below. Continue current treatment with the changes noted in the dictated addendum note Assessment: Vital Signs: Vital Signs Date Time Temp Pulse Resp B/P (MAP) Pulse Ox O2 Delivery O2 Flow Rate FiO2 12/04/16 16:12 98.1 71 19 138/58 (84) 98 12/02/16 16:01 Room Air I&O Intake and Output 12/04/16 07:00 Intake Total 600 ml Balance 600 ml Intake Oral 600 ml Current Medications: Meds: Current Medications Donepezil HCl (Aricept) 5 mg HS PO Last administered on 11/22/16 20:39; Start 11/22/16 at 21:00; Stop 11/23/16 at 16:37; Status DC Lorazepam (Ativan) 0.25 mg DAILY PO Last administered on 11/28/16 09:19; Start 11/23/16 at 09:00; Stop 11/28/16 at 18:46; Status DC Quetiapine Fumarate (SEROquel) 25 mg NOON PO Last administered on 11/24/16 11: 34; Start 11/23/16 at 12:00; Stop 11/25/16 at 17:06; Status DC Acetaminophen (Tylenol) 650 mg PRN Q6HRS PRN PO PAIN / TEMP; Start 11/22/16 at 14:15; Stop 11/23/16 at 12:34; Status DC Multi-Ingredient Ointment (Analgesic [place]) 1 vicki PRN QID PRN TP MUSCLE PAIN; Start 11/22/16 at 14:15 Al Hydroxide/Mg Hydroxide (Mylanta Plus Xs) 15 ml PRN AFTMEALHC PRN PO DYSPEPSIA; Start 11/22/16 at 14:15 Magnesium Hydroxide (Milk Of Magnesia) 2,400 mg PRN QHS PRN PO CONSTIPATION; Start 11/22/16 at 14:15 Acetaminophen (Tylenol) 650 mg PRN Q4HRS PO Last administered on 11/27/16 20: 29; Start 11/23/16 at 07:15 Aspirin (Aspirin Enteric Coated) 81 mg DAILY PO Last administered on 12/04/16 09:22; Start 11/23/16 at 09:00 Vitamin D (Vitamin D3) 2,000 unit DAILY PO Last administered on 12/04/16 09:27 ; Start 11/23/16 at 09:00 Diltiazem HCl (Cardizem 24hr Cd) 240 mg DAILY PO Last administered on 09:42; Start 11/23/16 at 09:00 Furosemide (Lasix) 40 mg DAILY PO Last administered on 11/29/16 09:46; Start 11/23/16 at 09:00; Stop 11/29/16 at 11:53; Status DC Losartan Potassium (Cozaar) 50 mg DAILY PO Last administered on 12/03/16 09:11 ; Start 11/23/16 at 09:00 Lactobacillus Acidophilus (Bacid, Amparo-Bid) 1 tab DAILY PO Last administered on 12/04/16 09:22; Start 11/23/16 at 09:00 Atorvastatin Calcium (Lipitor) 40 mg QHS PO Last administered on 12/03/16 19: 19; Start 11/23/16 at 21:00 Vitamin D (Vitamin D3) 50,000 unit WEEKLY PO ; Start 11/24/16 at 09:00 Donepezil HCl (Aricept) 10 mg QHS PO Last administered on 12/03/16 19:19; Start 11/23/16 at 21:00 Bupropion HCl (Wellbutrin Xl) 150 mg DAILY PO Last administered on 11/25/16 08 :22; Start 11/24/16 at 09:00; Stop 11/25/16 at 17:06; Status DC Mirtazapine (Remeron) 7.5 mg QHS PO Last administered on 11/24/16 19:55; Start 11/23/16 at 21:00; Stop 11/25/16 at 17:08; Status DC Olanzapine (ZyPREXA ZYDIS) 2.5 mg PRN Q2HR PRN PO PSYCHOSIS Last administered on 11/24/16 23:07; Start 11/23/16 at 18:30 Risperidone (RisperDAL) 0.125 mg QHS SL Last administered on 11/24/16 11:35; Start 11/24/16 at 11:00; Stop 11/25/16 at 17:08; Status DC Mirtazapine (Remeron) 15 mg QHS PO Last administered on 11/29/16 19:46; Start 11/25/16 at 21:00; Stop 12/01/16 at 18:32; Status DC Risperidone (RisperDAL) 0.25 mg QHS SL Last administered on 11/27/16 20:29; Start 11/25/16 at 21:00; Stop 11/28/16 at 18:46; Status DC Trazodone HCl (Desyrel) 50 mg QHS PO Last administered on 12/03/16 19:19; Start 11/25/16 at 21:00 Trazodone HCl (Desyrel) 50 mg PRN QHS PRN PO INSOMNIA Last administered on 11/26 22:40; Start 11/25/16 at 17:15 Risperidone (RisperDAL) 0.375 mg QHS SL Last administered on 12/03/16 19:20; Start 11/28/16 at 21:00 Furosemide (Lasix) 20 mg DAILY PO Last administered on 12/03/16 09:11; Start 11/30/16 at 09:00 Potassium Chloride (Klor-Con) 20 meq DAILYWBKFT PO Last administered on 09:22; Start 11/30/16 at 08:00 Potassium Chloride (Klor-Con) 20 meq 1X ONCE PO Last administered on 12:20; Start 11/29/16 at 12:30; Stop 11/29/16 at 12:31; Status DC Escitalopram Oxalate (Lexapro) 5 mg QHS PO ; Start 11/30/16 at 21:00; Stop 12/01 at 07:17; Status DC Escitalopram Oxalate (Lexapro) 5 mg DAILY PO Last administered on 12/04/16 09: 42; Start 12/01/16 at 09:00 Melatonin 3 mg HS PO Last administered on 12/03/16 19:19; Start 12/01/16 at 21 :00 Mirtazapine (Remeron [place]-Tab) 15 mg QHS PO Last administered on 12/03/16 19:19 ; Start 12/01/16 at 21:00 Aspirin (Aspirin Enteric Coated) 81 mg 1X ONCE PO Last administered on 08:29; Start 12/02/16 at 09:00; Stop 12/02/16 at 09:01; Status DC Vitamin D (Vitamin D3) 2,000 unit 1X ONCE PO Last administered on 12/02/16 08 :26; Start 12/02/16 at 08:30; Stop 12/02/16 at 08:31; Status DC Diltiazem HCl (Cardizem 24hr Cd) 240 mg 1X ONCE PO Last administered on 08:29; Start 12/02/16 at 08:30; Stop 12/02/16 at 08:31; Status DC Escitalopram Oxalate (Lexapro) 5 mg 1X ONCE PO Last administered on 12/02/16 08:28; Start 12/02/16 at 08:30; Stop 12/02/16 at 08:31; Status DC Furosemide (Lasix) 20 mg 1X ONCE PO Last administered on 12/02/16 08:29; Start 12/02/16 at 08:30; Stop 12/02/16 at 08:31; Status DC Lactobacillus Acidophilus (Bacid, Amparo-Bid) 1 tab 1X ONCE PO Last administered on 12/02/16 08:28; Start 12/02/16 at 09:00; Stop 12/02/16 at 09:01 ; Status DC Losartan Potassium (Cozaar) 50 mg 1X ONCE PO Last administered on 12/02/16 08 :28; Start 12/02/16 at 09:00; Stop 12/02/16 at 09:01; Status DC Active Scripts Active Reported Trazodone Hcl 50 Mg Tablet 50 Mg PO PRN QHS PRN Trazodone Hcl 50 Mg Tablet 50 Mg PO QHS Risperdal (Risperidone) 1 Mg/1 Ml Solution 0.375 Mg PO QHS Potassium Chloride 20 Meq Tablet.er 20 Meq PO DAILYWBKFT Zyprexa (Olanzapine) 2.5 Mg Tablet 2.5 Mg PO PRN Q2HR PRN Mirtazapine 15 Mg Tablet 15 Mg PO QHS Analgesic [place] (Methyl Salicylate/Menthol) 28 Gm Oint...g. 1 Gm TP PRN QID PRN Milk Of Magnesia (Magnesium Hydroxide) 2,400 Mg/10 Ml Oral.susp 2,400 Mg PO PRN QHS PRN Mag-Al Plus Xs Suspension (Mag Hydrox/Al Hydrox/Simeth) 30 Ml Oral.susp 15 Ml PO PRN AFTMEALHC PRN Lexapro (Escitalopram Oxalate) 5 Mg Tablet 5 Mg PO QHS Vitamin D3 (Cholecalciferol (Vitamin D3)) 5,000 Unit Tablet 5,000 Unit PO WEEKLY Atorvastatin Calcium 40 Mg Tablet 40 Mg PO QHS Vitamin D3 (Cholecalciferol (Vitamin D3)) 1,000 Unit Tablet 2,000 Unit PO DAILY Santyl (Collagenase Clostridium Hist.) 30 Gm Oint...g. 30 Gm TP DAILY Crestor (Rosuvastatin Calcium) 10 Mg Tablet 10 Mg PO DAILY Probiotic (Lactobacillus Combo No.10) 1 Each Capsule 1 Each PO DAILY Losartan Potassium 50 Mg Tablet 50 Mg PO DAILY Lorazepam 0.5 Mg Tablet 0.25 Mg PO DAILY Lasix (Furosemide) 40 Mg Tablet 40 Mg PO DAILY Donepezil Hcl 5 Mg Tablet 5 Mg PO HS Diltiazem 24HR Cd (Diltiazem Hcl) 120 Mg Cap.er.24h 240 Mg PO Aspir-Low (Aspirin) 81 Mg Tablet.dr 81 Mg PO Tylenol (Acetaminophen) 325 Mg Tablet 650 Mg PO Seroquel (Quetiapine Fumarate) 25 Mg Tablet 25 Tab PO SAVAGE DUMONT MD Dec 04, 2016 19:38
[2016-12-04] MEDS: MELATONIN 3 MG TABLET PO SCH (20:04)
[2016-12-04] MEDS: ATORVASTATIN CALCIUM 20 MG TABLET PO SCH (20:04)
[2016-12-04] MEDS: DONEPEZIL HCL 10 MG TABLET PO SCH (20:04)
[2016-12-04] MEDS: MIRTAZAPINE 15 MG TAB.RAPDIS PO SCH (20:04)
[2016-12-04] MEDS: traZODone 50 MG TABLET. PO SCH (20:04)
[2016-12-04] MEDS: risperiDONE ORAL 1 MG/ML 30ml BOTTLE. SL SCH (20:05)
[2016-12-05 06:02] VITALS: BP 114/54
[2016-12-05] MEDS: LACTOBACILLUS ACIDOPH & BULGAR 1 TABLET. PO SCH (08:46)
[2016-12-05] MEDS: ASPIRIN ENTERIC COATED 81 MG TABLET.DR. PO SCH (08:46)
[2016-12-05] MEDS: POTASSIUM CHLORIDE 20 MEQ TABLET.ER. PO SCH (08:47)
[2016-12-05] MEDS: CHOLECALCIFEROL (VITAMIN D3) 1,000 UNIT TABLET PO SCH (08:47)
[2016-12-05] MEDS: FUROSEMIDE 20 MG TABLET PO SCH ×2 (08:48→08:56)
[2016-12-05] MEDS: LOSARTAN 50 MG TABLET. PO SCH ×2 (08:48→08:56)
[2016-12-05] MEDS: ESCITALOPRAM 10 MG TABLET. PO SCH (08:54)
[2016-12-05 08:55] VITALS: BP 109/52
[2016-12-05 15:54] VITALS: BP 108/55
[2016-12-05] MEDS: DONEPEZIL HCL 10 MG TABLET PO SCH (19:36)
[2016-12-05] MEDS: MIRTAZAPINE 15 MG TAB.RAPDIS PO SCH (19:36)
[2016-12-05] MEDS: MELATONIN 3 MG TABLET PO SCH (19:36)
[2016-12-05] MEDS: traZODone 50 MG TABLET. PO SCH (19:36)
[2016-12-05] MEDS: ATORVASTATIN CALCIUM 20 MG TABLET PO SCH (19:37)
[2016-12-05] MEDS: risperiDONE ORAL 1 MG/ML 30ml BOTTLE. SL SCH (19:39)
--- NOTE | 2016-12-05 19:45 | PDOC ---
Exam Andrez Demential Exam: Andrez Note: Please also refer to the separate dictated note~for this date of service dictated separately.~Patient seen individually. Discussed the patient with Nursing staff reviewed the chart.~Reviewed interim history and current functioning. Reviewed vital signs,~Labs/ Radiology~and current medications noted below. Continue current treatment with the changes noted in the dictated addendum note Assessment: Vital Signs: Vital Signs Date Time Temp Pulse Resp B/P (MAP) Pulse Ox O2 Delivery O2 Flow Rate FiO2 12/05/16 15:54 98.6 74 18 108/55 (72) 98 12/02/16 16:01 Room Air I&O Intake and Output 12/05/16 07:00 Intake Total 960 ml Balance 960 ml Intake Oral 960 ml Current Medications: Meds: Current Medications Donepezil HCl (Aricept) 5 mg HS PO Last administered on 11/22/16 20:39; Start 11/22/16 at 21:00; Stop 11/23/16 at 16:37; Status DC Lorazepam (Ativan) 0.25 mg DAILY PO Last administered on 11/28/16 09:19; Start 11/23/16 at 09:00; Stop 11/28/16 at 18:46; Status DC Quetiapine Fumarate (SEROquel) 25 mg NOON PO Last administered on 11/24/16 11: 34; Start 11/23/16 at 12:00; Stop 11/25/16 at 17:06; Status DC Acetaminophen (Tylenol) 650 mg PRN Q6HRS PRN PO PAIN / TEMP; Start 11/22/16 at 14:15; Stop 11/23/16 at 12:34; Status DC Multi-Ingredient Ointment (Analgesic [place]) 1 vicki PRN QID PRN TP MUSCLE PAIN; Start 11/22/16 at 14:15 Al Hydroxide/Mg Hydroxide (Mylanta Plus Xs) 15 ml PRN AFTMEALHC PRN PO DYSPEPSIA; Start 11/22/16 at 14:15 Magnesium Hydroxide (Milk Of Magnesia) 2,400 mg PRN QHS PRN PO CONSTIPATION Last administered on 12/05/16 18:42; Start 11/22/16 at 14:15 Acetaminophen (Tylenol) 650 mg PRN Q4HRS PO Last administered on 11/27/16 20: 29; Start 11/23/16 at 07:15 Aspirin (Aspirin Enteric Coated) 81 mg DAILY PO Last administered on 12/05/16 08:46; Start 11/23/16 at 09:00 Vitamin D (Vitamin D3) 2,000 unit DAILY PO Last administered on 12/05/16 08:47 ; Start 11/23/16 at 09:00 Diltiazem HCl (Cardizem 24hr Cd) 240 mg DAILY PO Last administered on 08:47; Start 11/23/16 at 09:00 Furosemide (Lasix) 40 mg DAILY PO Last administered on 11/29/16 09:46; Start 11/23/16 at 09:00; Stop 11/29/16 at 11:53; Status DC Losartan Potassium (Cozaar) 50 mg DAILY PO Last administered on 12/03/16 09:11 ; Start 11/23/16 at 09:00 Lactobacillus Acidophilus (Bacid, Amparo-Bid) 1 tab DAILY PO Last administered on 12/05/16 08:46; Start 11/23/16 at 09:00 Atorvastatin Calcium (Lipitor) 40 mg QHS PO Last administered on 12/05/16 19: 37; Start 11/23/16 at 21:00 Vitamin D (Vitamin D3) 50,000 unit WEEKLY PO ; Start 11/24/16 at 09:00 Donepezil HCl (Aricept) 10 mg QHS PO Last administered on 12/05/16 19:36; Start 11/23/16 at 21:00 Bupropion HCl (Wellbutrin Xl) 150 mg DAILY PO Last administered on 11/25/16 08 :22; Start 11/24/16 at 09:00; Stop 11/25/16 at 17:06; Status DC Mirtazapine (Remeron) 7.5 mg QHS PO Last administered on 11/24/16 19:55; Start 11/23/16 at 21:00; Stop 11/25/16 at 17:08; Status DC Olanzapine (ZyPREXA ZYDIS) 2.5 mg PRN Q2HR PRN PO PSYCHOSIS Last administered on 11/24/16 23:07; Start 11/23/16 at 18:30 Risperidone (RisperDAL) 0.125 mg QHS SL Last administered on 11/24/16 11:35; Start 11/24/16 at 11:00; Stop 11/25/16 at 17:08; Status DC Mirtazapine (Remeron) 15 mg QHS PO Last administered on 11/29/16 19:46; Start 11/25/16 at 21:00; Stop 12/01/16 at 18:32; Status DC Risperidone (RisperDAL) 0.25 mg QHS SL Last administered on 11/27/16 20:29; Start 11/25/16 at 21:00; Stop 11/28/16 at 18:46; Status DC Trazodone HCl (Desyrel) 50 mg QHS PO Last administered on 12/05/16 19:36; Start 11/25/16 at 21:00 Trazodone HCl (Desyrel) 50 mg PRN QHS PRN PO INSOMNIA Last administered on 11/26 22:40; Start 11/25/16 at 17:15 Risperidone (RisperDAL) 0.375 mg QHS SL Last administered on 12/05/16 19:39; Start 11/28/16 at 21:00 Furosemide (Lasix) 20 mg DAILY PO Last administered on 12/03/16 09:11; Start 11/30/16 at 09:00 Potassium Chloride (Klor-Con) 20 meq DAILYWBKFT PO Last administered on 08:47; Start 11/30/16 at 08:00 Potassium Chloride (Klor-Con) 20 meq 1X ONCE PO Last administered on 12:20; Start 11/29/16 at 12:30; Stop 11/29/16 at 12:31; Status DC Escitalopram Oxalate (Lexapro) 5 mg QHS PO ; Start 11/30/16 at 21:00; Stop 12/01 at 07:17; Status DC Escitalopram Oxalate (Lexapro) 5 mg DAILY PO Last administered on 12/05/16 08: 54; Start 12/01/16 at 09:00 Melatonin 3 mg HS PO Last administered on 12/05/16 19:36; Start 12/01/16 at 21 :00 Mirtazapine (Remeron [place]-Tab) 15 mg QHS PO Last administered on 12/05/16 19:36 ; Start 12/01/16 at 21:00 Aspirin (Aspirin Enteric Coated) 81 mg 1X ONCE PO Last administered on 08:29; Start 12/02/16 at 09:00; Stop 12/02/16 at 09:01; Status DC Vitamin D (Vitamin D3) 2,000 unit 1X ONCE PO Last administered on 12/02/16 08 :26; Start 12/02/16 at 08:30; Stop 12/02/16 at 08:31; Status DC Diltiazem HCl (Cardizem 24hr Cd) 240 mg 1X ONCE PO Last administered on 08:29; Start 12/02/16 at 08:30; Stop 12/02/16 at 08:31; Status DC Escitalopram Oxalate (Lexapro) 5 mg 1X ONCE PO Last administered on 12/02/16 08:28; Start 12/02/16 at 08:30; Stop 12/02/16 at 08:31; Status DC Furosemide (Lasix) 20 mg 1X ONCE PO Last administered on 12/02/16 08:29; Start 12/02/16 at 08:30; Stop 12/02/16 at 08:31; Status DC Lactobacillus Acidophilus (Bacid, Amparo-Bid) 1 tab 1X ONCE PO Last administered on 12/02/16 08:28; Start 12/02/16 at 09:00; Stop 12/02/16 at 09:01 ; Status DC Losartan Potassium (Cozaar) 50 mg 1X ONCE PO Last administered on 12/02/16 08 :28; Start 12/02/16 at 09:00; Stop 12/02/16 at 09:01; Status DC Active Scripts Active Reported Trazodone Hcl 50 Mg Tablet 50 Mg PO PRN QHS PRN Trazodone Hcl 50 Mg Tablet 50 Mg PO QHS Risperdal (Risperidone) 1 Mg/1 Ml Solution 0.375 Mg PO QHS Potassium Chloride 20 Meq Tablet.er 20 Meq PO DAILYWBKFT Zyprexa (Olanzapine) 2.5 Mg Tablet 2.5 Mg PO PRN Q2HR PRN Mirtazapine 15 Mg Tablet 15 Mg PO QHS Analgesic [employer] (Methyl Salicylate/Menthol) 28 Gm Oint...g. 1 Gm TP PRN QID PRN Milk Of Magnesia (Magnesium Hydroxide) 2,400 Mg/10 Ml Oral.susp 2,400 Mg PO PRN QHS PRN Mag-Al Plus Xs Suspension (Mag Hydrox/Al Hydrox/Simeth) 30 Ml Oral.susp 15 Ml PO PRN AFTMEALHC PRN Lexapro (Escitalopram Oxalate) 5 Mg Tablet 5 Mg PO QHS Vitamin D3 (Cholecalciferol (Vitamin D3)) 5,000 Unit Tablet 5,000 Unit PO WEEKLY Atorvastatin Calcium 40 Mg Tablet 40 Mg PO QHS Vitamin D3 (Cholecalciferol (Vitamin D3)) 1,000 Unit Tablet 2,000 Unit PO DAILY Santyl (Collagenase Clostridium Hist.) 30 Gm Oint...g. 30 Gm TP DAILY Crestor (Rosuvastatin Calcium) 10 Mg Tablet 10 Mg PO DAILY Probiotic (Lactobacillus Combo No.10) 1 Each Capsule 1 Each PO DAILY Losartan Potassium 50 Mg Tablet 50 Mg PO DAILY Lorazepam 0.5 Mg Tablet 0.25 Mg PO DAILY Lasix (Furosemide) 40 Mg Tablet 40 Mg PO DAILY Donepezil Hcl 5 Mg Tablet 5 Mg PO HS Diltiazem 24HR Cd (Diltiazem Hcl) 120 Mg Cap.er.24h 240 Mg PO Aspir-Low (Aspirin) 81 Mg Tablet.dr 81 Mg PO Tylenol (Acetaminophen) 325 Mg Tablet 650 Mg PO Seroquel (Quetiapine Fumarate) 25 Mg Tablet 25 Tab PO SAVAGE DUMONT MD Dec 05, 2016 19:45
--- NOTE | 2016-12-06 00:36 | PN ---
DATE: 12/04/2016 PSYCHIATRIC PROGRESS NOTE This is a late entry for 12/04/2016, covers elements not covered in my initial note. SUBJECTIVE: I met with the patient the evening of 12/04/2016. The patient slept 5-1/2 hours last night. Appetite is fair. Overall, she has been calm, compliant, much more oriented, less labile, not aggressive, which is an improvement. REVIEW OF SYSTEMS: No CV, , pulmonary, eye, ENT system symptoms on review. Reliability poor. MENTAL STATUS EXAM: Oriented to herself and situation. Speech is coherent, abstraction fair, computation impaired, language function intact, attention span short. Mood and affect is overall improved. LABORATORY DATA: Reviewed. IMPRESSION: Unchanged from initial note. PLAN: Continue current psychotropics mentioned in my initial note. Adjust further as clinically indicated. MAN Kam CASTILLO MD DR: DION/soto JOB#: [id number] / [id number]
[2016-12-06] MEDS ORDERED: MELA3TAB2 PO (04:23)
[2016-12-06 06:25] VITALS: BP 116/77
[2016-12-06] MEDS: LOSARTAN 50 MG TABLET. PO SCH (09:00)
[2016-12-06 09:03] VITALS: BP 116/77
[2016-12-06] MEDS: FUROSEMIDE 20 MG TABLET PO SCH (09:03)
[2016-12-06] MEDS: POTASSIUM CHLORIDE 20 MEQ TABLET.ER. PO SCH (09:03)
[2016-12-06] MEDS: LACTOBACILLUS ACIDOPH & BULGAR 1 TABLET. PO SCH (09:03)
[2016-12-06] MEDS: ASPIRIN ENTERIC COATED 81 MG TABLET.DR. PO SCH (09:03)
[2016-12-06] MEDS: CHOLECALCIFEROL (VITAMIN D3) 1,000 UNIT TABLET PO SCH (09:03)
[2016-12-06] MEDS: ESCITALOPRAM 10 MG TABLET. PO SCH (09:06)
--- NOTE | 2016-12-06 19:46 | PDOC ---
Exam Andrez Demential Exam: Andrez Note: Please also refer to the separate dictated note~for this date of service dictated separately.~Patient seen individually. Discussed the patient with Nursing staff reviewed the chart.~Reviewed interim history and current functioning. Reviewed vital signs,~Labs/ Radiology~and current medications noted below. Continue current treatment with the changes noted in the dictated addendum note Assessment: Vital Signs: Vital Signs Date Time Temp Pulse Resp B/P (MAP) Pulse Ox O2 Delivery O2 Flow Rate FiO2 12/06/16 09:03 77 116/77 12/06/16 06:25 97.8 18 97 12/02/16 16:01 Room Air I&O Intake and Output 12/06/16 07:00 Intake Total 1200 ml Balance 1200 ml Intake Oral 1200 ml # Bowel Movements 1 Current Medications: Meds: Current Medications Donepezil HCl (Aricept) 5 mg HS PO Last administered on 11/22/16 20:39; Start 11/22/16 at 21:00; Stop 11/23/16 at 16:37; Status DC Lorazepam (Ativan) 0.25 mg DAILY PO Last administered on 11/28/16 09:19; Start 11/23/16 at 09:00; Stop 11/28/16 at 18:46; Status DC Quetiapine Fumarate (SEROquel) 25 mg NOON PO Last administered on 11/24/16 11: 34; Start 11/23/16 at 12:00; Stop 11/25/16 at 17:06; Status DC Acetaminophen (Tylenol) 650 mg PRN Q6HRS PRN PO PAIN / TEMP; Start 11/22/16 at 14:15; Stop 11/23/16 at 12:34; Status DC Multi-Ingredient Ointment (Analgesic [place]) 1 vicki PRN QID PRN TP MUSCLE PAIN; Start 11/22/16 at 14:15; Stop 12/06/16 at 12:15; Status DC Al Hydroxide/Mg Hydroxide (Mylanta Plus Xs) 15 ml PRN AFTMEALHC PRN PO DYSPEPSIA; Start 11/22/16 at 14:15; Stop 12/06/16 at 12:15; Status DC Magnesium Hydroxide (Milk Of Magnesia) 2,400 mg PRN QHS PRN PO CONSTIPATION Last administered on 12/05/16 18:42; Start 11/22/16 at 14:15; Stop 12/06/16 at 12:15; Status DC Acetaminophen (Tylenol) 650 mg PRN Q4HRS PO Last administered on 11/27/16 20: 29; Start 11/23/16 at 07:15; Stop 12/06/16 at 12:15; Status DC Aspirin (Aspirin Enteric Coated) 81 mg DAILY PO Last administered on 12/06/16 09:03; Start 11/23/16 at 09:00; Stop 12/06/16 at 12:15; Status DC Vitamin D (Vitamin D3) 2,000 unit DAILY PO Last administered on 12/06/16 09:03 ; Start 11/23/16 at 09:00; Stop 12/06/16 at 12:15; Status DC Diltiazem HCl (Cardizem 24hr Cd) 240 mg DAILY PO Last administered on 12/06/16 09:03; Start 11/23/16 at 09:00; Stop 12/06/16 at 12:15; Status DC Furosemide (Lasix) 40 mg DAILY PO Last administered on 11/29/16 09:46; Start 11/23/16 at 09:00; Stop 11/29/16 at 11:53; Status DC Losartan Potassium (Cozaar) 50 mg DAILY PO Last administered on 12/03/16 09:11 ; Start 11/23/16 at 09:00; Stop 12/06/16 at 12:15; Status DC Lactobacillus Acidophilus (Bacid, Amparo-Bid) 1 tab DAILY PO Last administered on 12/06/16 09:03; Start 11/23/16 at 09:00; Stop 12/06/16 at 12:15; Status DC Atorvastatin Calcium (Lipitor) 40 mg QHS PO Last administered on 12/05/16 19: 37; Start 11/23/16 at 21:00; Stop 12/06/16 at 12:15; Status DC Vitamin D (Vitamin D3) 50,000 unit WEEKLY PO ; Start 11/24/16 at 09:00; Stop 12/06/16 at 12:15; Status DC Donepezil HCl (Aricept) 10 mg QHS PO Last administered on 12/05/16 19:36; Start 11/23/16 at 21:00; Stop 12/06/16 at 12:15; Status DC Bupropion HCl (Wellbutrin Xl) 150 mg DAILY PO Last administered on 11/25/16 08 :22; Start 11/24/16 at 09:00; Stop 11/25/16 at 17:06; Status DC Mirtazapine (Remeron) 7.5 mg QHS PO Last administered on 11/24/16 19:55; Start 11/23/16 at 21:00; Stop 11/25/16 at 17:08; Status DC Olanzapine (ZyPREXA ZYDIS) 2.5 mg PRN Q2HR PRN PO PSYCHOSIS Last administered on 11/24/16 23:07; Start 11/23/16 at 18:30; Stop 12/06/16 at 12:15; Status DC Risperidone (RisperDAL) 0.125 mg QHS SL Last administered on 11/24/16 11:35; Start 11/24/16 at 11:00; Stop 11/25/16 at 17:08; Status DC Mirtazapine (Remeron) 15 mg QHS PO Last administered on 11/29/16 19:46; Start 11/25/16 at 21:00; Stop 12/01/16 at 18:32; Status DC Risperidone (RisperDAL) 0.25 mg QHS SL Last administered on 11/27/16 20:29; Start 11/25/16 at 21:00; Stop 11/28/16 at 18:46; Status DC Trazodone HCl (Desyrel) 50 mg QHS PO Last administered on 12/05/16 19:36; Start 11/25/16 at 21:00; Stop 12/06/16 at 12:15; Status DC Trazodone HCl (Desyrel) 50 mg PRN QHS PRN PO INSOMNIA Last administered on 11/26 22:40; Start 11/25/16 at 17:15; Stop 12/06/16 at 12:15; Status DC Risperidone (RisperDAL) 0.375 mg QHS SL Last administered on 12/05/16 19:39; Start 11/28/16 at 21:00; Stop 12/06/16 at 12:15; Status DC Furosemide (Lasix) 20 mg DAILY PO Last administered on 12/06/16 09:03; Start at 09:00; Stop 12/06/16 at 12:15; Status DC Potassium Chloride (Klor-Con) 20 meq DAILYWBKFT PO Last administered on 09:03; Start 11/30/16 at 08:00; Stop 12/06/16 at 12:15; Status DC Potassium Chloride (Klor-Con) 20 meq 1X ONCE PO Last administered on 12:20; Start 11/29/16 at 12:30; Stop 11/29/16 at 12:31; Status DC Escitalopram Oxalate (Lexapro) 5 mg QHS PO ; Start 11/30/16 at 21:00; Stop 12/01 at 07:17; Status DC Escitalopram Oxalate (Lexapro) 5 mg DAILY PO Last administered on 12/06/16 09: 06; Start 12/01/16 at 09:00; Stop 12/06/16 at 12:15; Status DC Melatonin 3 mg HS PO Last administered on 12/05/16 19:36; Start 12/01/16 at 21 :00; Stop 12/06/16 at 12:15; Status DC Mirtazapine (Remeron [place]-Tab) 15 mg QHS PO Last administered on 12/05/16 19:36 ; Start 12/01/16 at 21:00; Stop 12/06/16 at 12:15; Status DC Aspirin (Aspirin Enteric Coated) 81 mg 1X ONCE PO Last administered on 08:29; Start 12/02/16 at 09:00; Stop 12/02/16 at 09:01; Status DC Vitamin D (Vitamin D3) 2,000 unit 1X ONCE PO Last administered on 12/02/16 08 :26; Start 12/02/16 at 08:30; Stop 12/02/16 at 08:31; Status DC Diltiazem HCl (Cardizem 24hr Cd) 240 mg 1X ONCE PO Last administered on 08:29; Start 12/02/16 at 08:30; Stop 12/02/16 at 08:31; Status DC Escitalopram Oxalate (Lexapro) 5 mg 1X ONCE PO Last administered on 12/02/16 08:28; Start 12/02/16 at 08:30; Stop 12/02/16 at 08:31; Status DC Furosemide (Lasix) 20 mg 1X ONCE PO Last administered on 12/02/16 08:29; Start 12/02/16 at 08:30; Stop 12/02/16 at 08:31; Status DC Lactobacillus Acidophilus (Bacid, Amparo-Bid) 1 tab 1X ONCE PO Last administered on 12/02/16 08:28; Start 12/02/16 at 09:00; Stop 12/02/16 at 09:01 ; Status DC Losartan Potassium (Cozaar) 50 mg 1X ONCE PO Last administered on 12/02/16 08 :28; Start 12/02/16 at 09:00; Stop 12/02/16 at 09:01; Status DC Active Scripts Active Reported Melatonin 3 Mg Tablet 3 Mg PO QHS Trazodone Hcl 50 Mg Tablet 50 Mg PO PRN QHS PRN Trazodone Hcl 50 Mg Tablet 50 Mg PO QHS Risperdal (Risperidone) 1 Mg/1 Ml Solution 0.375 Mg PO QHS Potassium Chloride 20 Meq Tablet.er 20 Meq PO DAILYWBKFT Zyprexa (Olanzapine) 2.5 Mg Tablet 2.5 Mg PO PRN Q2HR PRN Mirtazapine 15 Mg Tablet 15 Mg PO QHS Analgesic [place] (Methyl Salicylate/Menthol) 28 Gm Oint...g. 1 Gm TP PRN QID PRN Milk Of Magnesia (Magnesium Hydroxide) 2,400 Mg/10 Ml Oral.susp 2,400 Mg PO PRN QHS PRN Mag-Al Plus Xs Suspension (Mag Hydrox/Al Hydrox/Simeth) 30 Ml Oral.susp 15 Ml PO PRN AFTMEALHC PRN Lexapro (Escitalopram Oxalate) 5 Mg Tablet 5 Mg PO DAILY Vitamin D3 (Cholecalciferol (Vitamin D3)) 5,000 Unit Tablet 5,000 Unit PO WEEKLY Atorvastatin Calcium 40 Mg Tablet 40 Mg PO QHS Vitamin D3 (Cholecalciferol (Vitamin D3)) 1,000 Unit Tablet 2,000 Unit PO DAILY Probiotic (Lactobacillus Combo No.10) 1 Each Capsule 1 Each PO DAILY Losartan Potassium 50 Mg Tablet 50 Mg PO DAILY Lasix (Furosemide) 40 Mg Tablet 40 Mg PO DAILY Donepezil Hcl 5 Mg Tablet 10 Mg PO HS Diltiazem 24HR Cd (Diltiazem Hcl) 120 Mg Cap.er.24h 240 Mg PO Aspir-Low (Aspirin) 81 Mg Tablet.dr 81 Mg PO DAILY Tylenol (Acetaminophen) 325 Mg Tablet 650 Mg PO PRN Q4HRS PRN MDD 4000 Diagnosis: Problems: (1) Dementia-nuchal dystonia SAVAGE CASTILLO MD Dec 06, 2016 19:46
--- NOTE | 2016-12-06 23:23 | PN ---
DATE: 12/05/2016 PSYCHIATRIC PROGRESS NOTE This is a late entry of 12/05/2016 covers elements not covered in my initial note of 12/05/2016. SUBJECTIVE: I met with the patient in the evening of 12/05/2016. She takes her medications crushed. Per nursing report, she has been doing better, less labile, less paranoid, more accepting of her treatment not aggressive, all of which is an improvement. REVIEW OF SYSTEMS: No CV, , pulmonary, eye, ENT system symptoms on review. MENTAL STATUS EXAM: Oriented reasonably. Speech is coherent, has some latency, pleasant, smiling as I met with her. Abstraction fair, computation impaired. Mood and affect is improved. LABORATORY DATA: Reviewed. IMPRESSION: Unchanged from initial note. PLAN: Continue current psychotropics. MAN Kam CASTILLO MD DR: DION/soto JOB#: [id number] / [id number]
--- NOTE | 2016-12-07 22:09 | DS ---
DATE OF DISCHARGE: 12/06/2016 DISCHARGE SUMMARY/PSYCHIATRIC PROGRESS NOTE This late entry of 12/06/2016 covers elements not covered in my initial note of 12/06/2016. REASON FOR ADMISSION: Please refer to the admission history for details. Briefly, the patient is an 86-year-old female referred to us from [facility] by her primary care physician on account of increased agitation, aggression, being combative with staff, refusing medications, being paranoid. She believed her food was being poisoned. Behavior is worsened at night. She was delusional saying people are the devil and they are going to . She had been more confused, psychotic, agitated, depressed, unmanageable, dangerous, and her behaviors resulting in this referral. SIGNIFICANT FINDINGS AND CLINICAL COURSE: Following admission, the patient was seen daily individually by myself, followed medically per Dr. Frankel/Dr. Fregoso. She was initially quite psychotic, agitated, aggressive. Adjustments were made in her psychotropics for her paranoia and she seemed to respond to a combination of Aricept 10 mg a day, Remeron 15 mg at bedtime to help with her insomnia, Risperdal 0.375 mg at bedtime for her marked psychosis, for which she was even refusing to eat and drink initially when admitted and would only eat if the wrappers were untouched before she got the food. She is also on Zyprexa p.r.n., trazodone 50 mg at bedtime, Lexapro 5 mg a day, melatonin 3 mg at bedtime. REVIEW OF SYSTEMS: Prior to discharge on 12/06/2016, no CV, , pulmonary, eye, ENT system symptoms on review. MENTAL STATUS EXAM: Oriented to herself and situation. Speech coherent, pleasant, smiling. Abstraction fair, computation impaired, language function intact. Mood and affect improved. 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 Rest diagnoses unchanged from admission. DISCHARGE MEDICATIONS: Please refer to the [facility]. DISCHARGE INSTRUCTIONS: Outpatient psychiatric and medical followup at the [facility]. SAVAGE CASTILLO MD DR: DION/soto JOB#: [id number] / [id number]
== END 2016-12-06 11:50 | DRG 884 ==
LOC: ER 11:31 → GEROPSY 12:55
PROVIDERS: ADMIT Psychiatry & Neurology Psychiatry; ATTEND Psychiatry & Neurology Psychiatry
DX: F01.51 Vascular dementia, unspecified severity, with behavioral disturbance (principal); F02.81 Dementia in other diseases classified elsewhere, unspecified severity, with behavioral disturbance; F31.60 Bipolar disorder, current episode mixed, unspecified; G24.8 Other dystonia; E78.5 Hyperlipidemia, unspecified; E55.9 Vitamin D deficiency, unspecified; F41.9 Anxiety disorder, unspecified; F63.9 Impulse disorder, unspecified; G24.9 Dystonia, unspecified; G30.9 Alzheimer's disease, unspecified; R29.6 Repeated falls; I10 Essential (primary) hypertension; K21.9 Gastro-esophageal reflux disease without esophagitis; M79.7 Fibromyalgia; Z86.73 Personal history of transient ischemic attack (TIA), and cerebral infarction without residual deficits; Z87.440 Personal history of urinary (tract) infections; Z91.14 Patient's other noncompliance with medication regimen; Z88.1 Allergy status to other antibiotic agents; Z88.8 Allergy status to other drugs, medicaments and biological substances; Z88.7 Allergy status to serum and vaccine
CPT/HCPCS: 36415; 80053; 80061; 81001; 82306; 82607; 82947; 83036; 83540; 83550; 83735; 84436; 84443; 84480; 85027; 86592; 86593; 87086; 93005; 99285-25